=== PATIENT | female | born 1950 | race Caucasian/White ===

== ENCOUNTER → 2017-07-16 | Outpatient (CLI) | payer MEDICARE, OTHER ==
--- NOTE | 2017-07-16 09:05 | MR ---
EXAMINATION TYPE: MR lumbar spine wo con DATE OF EXAM: 07/16/2017 8:53 AM COMPARISON: NONE HISTORY: Lumbago Multiplanar, MultiSpin echo imaging of the lumbar spine was performed. L1-L2: Normal disc appearance without desiccation. No herniation, protrusion or disc bulging. No ca nal stenosis is present. Foramina are patent bilaterally. L2-L3: Mild disc desiccation is noted. Posterior disc bulging with mild effacement ventral thecal sac . No evidence for kenia disc herniation or central stenosis. Mild facet joint arthropathy without for aminal encroachment. L3-L4: Mild disc desiccation is noted. Posterior disc bulging with mild effacement ventral thecal sac . No evidence for kenia disc herniation or central stenosis. Mild facet joint arthropathy without for aminal encroachment. L4-L5: Moderate disc desiccation identified. Subligamentous posterior central disc herniation effaces the ventral thecal sac. There may be intermittent left lateral recess stenosis. No evidence for cent ral stenosis. Facet joint arthropathy without evidence for foraminal encroachment. Grade 1 anterolist hesis L4 and L5 measuring 3.8 mm. L5-S1: Severe disc desiccation noted. Posterior disc bulging with mild effacement ventral thecal sac. No evidence for kenia disc herniation or central stenosis. Mild facet joint arthropathy without fora eriberto encroachment. Lumbar segments are intact. No paraspinal masses are identified. Conus medullaris has a normal appe arance. IMPRESSION: 1. Multilevel degenerative disc disease as noted. 2. Subligamentous disc herniation at L4-5 with possible intermittent left lateral recess stenosis. Co rrelate clinically. See above.
== END ==
LOC: RADMRIMAIN 08:10
PROVIDERS: ATTEND Psychiatry & Neurology Pain Medicine
DX: M51.26 Other intervertebral disc displacement, lumbar region (principal); M51.36 Other intervertebral disc degeneration, lumbar region
CPT/HCPCS: 72148

== ENCOUNTER → 2018-12-08 | Outpatient (CLI) | payer MEDICARE, OTHER | END | disposition home or self-care (01) | LOC: LABPAT 10:30 | PROVIDERS: ATTEND Orthopaedic Surgery | DX: Z01.812 Encounter for preprocedural laboratory examination (principal) | CPT/HCPCS: 87070 ==

== ENCOUNTER 2019-01-19 05:38 | Inpatient (IN) | payer MEDICARE, OTHER ==
[2019-01-13 15:47] VITALS: BMI 39.2
--- NOTE | 2019-01-18 18:51 | HP ---
HISTORY AND PHYSICAL REASON FOR ADMISSION: Surgery scheduled for 01/19/2019 Rina Bañuelos is a 68-year-old patient seen with symptomatic right knee osteoarthritis. We discussed treatment options. She elected to proceed with right total knee arthroplasty. Consent was obtained. Medical clearance provided by Dr. Feliz Barrios. PAST MEDICAL HISTORY: Hypertension, hyperlipidemia, [id number] diabetes. PAST SURGICAL HISTORY: Left total knee arthroplasty, lung lobectomy. MEDICATIONS: Lisinopril/hydrochlorothiazide, Neurontin, pravastatin, Tenormin, aspirin, Flexeril, metformin. ALLERGIES: None. SOCIAL HISTORY: She denies tobacco use. PHYSICAL EXAMINATION: Evaluation of the right knee: Range of motion is negative 2 to 120 degrees. Tenderness along the medial joint line. Crepitus medial patellofemoral compartments with range of motion. Pain with patellofemoral compression. Ligaments are stable. Hip rotation without pain. Distal neurovascular exam is intact. RADIOGRAPHS: Right knee radiographs revealed severe osteoarthritic changes. IMPRESSION: 1. Right knee osteoarthritis. 2. Hypertension. 3. Hyperlipidemia. PLAN: Right total knee arthroplasty. Surgery is scheduled for 01/19/2019. MMODL / IJN: [id number] /
[~2019-01-19 05:38] MED LIST: TRANEXAMIC ACID 1,000 MG in SODIUM CHLORIDE 0.9% 100 ML IVPB ONE; ceFAZolin IN SWFI 2 GM/20 ML SYRINGE IVP ONE
[2019-01-19] MEDS ORDERED: LIDOCAINE 1% 20 ML VIAL (10MG/ML) FOR IV START INTRADERMA PRN (06:05)
[2019-01-19] MEDS: LACTATED RINGERS 1,000 ML IV SCH ×4 (06:35→19:51)
[2019-01-19 06:43] LABS: Glucose,Whole Blood 129 mg/dL (75-99)
[2019-01-19] MEDS: MELOXICAM 7.5 MG TAB PO ONE ×2 (06:55→10:35)
[2019-01-19] MEDS: ACETAMINOPHEN TAB 500 MG TAB PO ONE ×2 (06:55→10:35)
[2019-01-19] MEDS ORDERED: MIDAZOLAM (PF) 2 MG/2 ML VIAL IVP ONE (07:10)
[2019-01-19] MEDS: ONDANSETRON 4 MG/2 ML VIAL IVP ONE ×2 (07:22→10:35)
[2019-01-19] MEDS ORDERED: TRANEXAMIC ACID 1,000 MG/10 ML VIAL ONE (07:25)
[2019-01-19] MEDS ORDERED: SODIUM CHLORIDE 0.9% 100 ML BAG ONE (07:25)
[2019-01-19] MEDS ORDERED: PROPOFOL 10 MG/ML 20 ML VIAL IV ONE (07:25)
[2019-01-19] MEDS ORDERED: fentaNYL (PF) 50 MCG/ML 2 ML AMP ONE (07:25)
[2019-01-19] MEDS ORDERED: MIDAZOLAM 2 MG/2 ML VIAL ONE (07:25)
[2019-01-19] MEDS ORDERED: ROPIVACAINE 246.25 MG, EPINEPHrine 0.5 MG, KETOROLAC 30 MG, WATER FOR INJECTION,STERILE... MISCELLANE ONE ×4 (07:28)
[2019-01-19] MEDS ORDERED: ROPIVACAINE 1,100 MG, SODIUM CHLORIDE 0.9% 500 ML 330 ML MISCELLANE PRN ×2 (07:42)
--- NOTE | 2019-01-19 07:51 | P.ONQ ---
Anesthesiology Proc Note - PNB - Peripheral Nerve Block Performed Right Adductor Canal Infusion Time Out Performed: Yes Procedure Start Time: 06:57 Procedure Stop Time: 07:08 Indication: Acute Post-Operative Pain, Requested by physician Sedation Type: Sedate with meaningful contact maintained Preparation: Sterile Dressing Position: Supine Catheter: Indwelling Needle Types: On-Q Needle Size: 100mm (4") Needle Gauge: 21 Technique: Ultrasound (ropi .5% 25cc) Blood Aspirated: No Pain Paresthesia on Injection Noted: No Resistance on Injection: Normal Events: Uneventful and Well Tolerated
[2019-01-19] MEDS ORDERED: ceFAZolin 3,000 MG in SODIUM CHLORIDE 0.9% IRRIGATIO 3,000 ML IRRIGATION ONE (07:57)
[2019-01-19] MEDS ORDERED: LACTATED RINGERS 1,000 ML IV ONE (09:01)
[2019-01-19] MEDS ORDERED: ONDANSETRON 4 MG/2 ML VIAL IVP PRN (09:30)
[2019-01-19] MEDS ORDERED: traMADol 50 MG TAB PO PRN (09:30)
[2019-01-19] MEDS ORDERED: HYDROmorphone 0.5 MG/0.5 ML SYRINGE IVP PRN ×2 (09:30)
[2019-01-19] MEDS ORDERED: HYDROmorphone 1 MG/ML 1 ML SYRINGE IVP PRN (09:30)
[2019-01-19] MEDS ORDERED: HYDROcodone/APAP 5-325MG 1 EACH TAB PO PRN (09:30)
[2019-01-19] MEDS ORDERED: NALOXONE 0.4 MG/ML 1 ML VIAL IV PRN (09:30)
--- NOTE | 2019-01-19 09:30 | P.OP ---
Date of Procedure: 01/19/19 Preoperative Diagnosis: Right knee osteoarthritis Postoperative Diagnosis: Right knee osteoarthritis Procedure(s) Performed: Right total knee arthroplasty Implants: 1. Mai persona size 7 right cruciate-retaining cemented femur 2. Mai persona size E right cemented tibial baseplate 3. Mai persona 14 mm right medial congruent polyethylene tibial insert 4. Mai persona 35 mm all polyethylene cemented patella Anesthesia: regional (Adductor canal catheter), local, spinal Surgeon: Steve Islas Industrial Conveyor Belt Repairer #1: Carlo Whitley Estimated Blood Loss (ml): 50 Pathology: other (Bone) Condition: stable Disposition: PACU Indications for Procedure: 68-year-old patient seen with symptomatic right knee osteoarthritis. After having treatment options discussed, she elected to proceed with total knee arthroplasty. Operative Findings: See description of procedure Description of Procedure: Patient was taken to the operative suite after having an adductor canal catheter placed by the department of anesthesia for postoperative pain management. Patient underwent a spinal anesthetic by the department of anesthesia. Patient was given preoperative IV intake antibiotics and TXA. A well-padded tourniquet was placed about the right lower extremity. The lower extremity was then prepped and draped in the normal sterile orthopedic fashion. The extremity was elevated, a tourniquet was insufflated to 300. A standard anterior incision was made sharply through skin. Dissection was taken down through the subcutaneous soft tissues down to the extensor mechanism. A medial arthrotomy was performed, patella was everted and knee was flexed. There was advanced osteoarthritis noted. I introduced my distal intramedullary femoral drill. I then introduced the distal femoral cutting jig. Mehul GRAHAM secured the cutting jig with 2 pins. I held retractors in position while Mehul GRAHAM performed the distal femoral resection through the guide area we now removed her distal femoral cutting guide. We now placed our 4-in-1 femoral cutting block and positioned and it was secured with 2 pins by Mehul GRAHAM while I held the block in position. The distal femoral finishing was now completed. A proximal tibial cutting guide was positioned. I held the guide in the appropriate position with both hands well Mehul GRAHAM inserted stabilizing pins into the guide. Proximal tibial cut was made. We now placed a trial femoral component into position, along with an appropriate size tibial tray and insert. We now took the knee through range of motion and had full extension good flexion and good overall soft tissue balance noted. The patella was everted and stabilized with 2 towel clips held by Mehul GRAHAM while I performed a flush with patellar q uad tendon utilizing a fresh sawblade. We templated the patella, appropriate drill holes were made. An appropriate trial patella was positioned, knee was taken through full range of motion with the patella tracking very nicely. The trial patella was removed. Drill holes were made through the femoral component. All trial components were removed after marking off the appropriate rotation of the tibia. Retractors were now positioned along the proximal tibia. An appropriate keel punch was made with the appropriate size tibial guide by myself on Mehul GRAHAM assisted by holding retractors. At this point appropriate size implants were chosen and opened. The joint was irrigated copiously with pulse lavage mechanical irrigation. The posterior capsule was infiltrated with local analgesic. The wound was irrigated with pulse lavage mechanical irrigation. We mixed antibiotic methylmethacrylate. We placed the knee into flexion. We placed multiple retractors assisted by Mehul GRAHAM to expose the proximal tibia. Once the methyl methacrylate was ready, the tibial component was cemented into place removing any excess methylmethacrylate form by both myself and Mehul GRAHAM. The femoral component was cemented into place removing the removing any excess methylmethacrylate performed by both myself and Mehul GRAHAM. We then inserted the appropriate size polyethylene tibial insert. We made sure that it was locked into position. We took the knee into full extension, and then back in a flexion making sure we had removed any excess methylmethacrylate. The patellar component was then cemented down and secured with clamp. Excess methylmethacrylate removed. We kept the knee in full extension, patellar clamp in position until methylmethacrylate had hardened. Once it had hardened the patellar clamp was removed. The knee was taken through full range of motion. The patella tracked nicely. There was good soft tissue balancing. The tourniquet was now released. Additional hemostasis was achieved via electrocautery. A second gram of TXA was given. The wound again was irrigated with pulse lavage mechanical irrigation. The superficial soft tissues were infiltrated local analgesic. The extensor mechanism was repaired with Vicryl. We checked the repair with range of motion and it was stable. The subcutaneous soft tissues were repaired with Vicryl in layers. The skin was approximated with pernio/Dermabond. Sterile dressings were applied followed by loose web roll and Jc bandage. The patient was transferred to a bed, and taken to recovery in stable and satisfactory condition. Mehul GRAHAM assisted with this complex procedure.
[2019-01-19] MEDS: HYDROmorphone 0.5 MG/0.5 ML SYRINGE IVP PRN ×2 (10:09→10:16)
--- NOTE | 2019-01-19 10:27 | XR ---
EXAMINATION TYPE: XR knee limited RT DATE OF EXAM: 01/19/2019 COMPARISON: NONE TECHNIQUE: Two views submitted HISTORY: Post op FINDINGS: There is a prosthetic knee in near anatomic alignment. There is soft tissue edema and emphysema. IMPRESSION: 1. Postoperative change. Appears in near-anatomic alignment
[2019-01-19 10:36] LABS: Glucose,Whole Blood 117 mg/dL (75-99)
[2019-01-19 16:51] LABS: Glucose,Whole Blood 108 mg/dL (75-99)
[2019-01-19] MEDS: INSULIN ASPART (NovoLOG) 100 UNIT/ML VIAL SQ SCH ×2 (18:39→20:33)
[2019-01-19] MEDS: ceFAZolin IN SWFI 2 GM/20 ML SYRINGE IVP SCH (18:39)
[2019-01-19] MEDS: SENNOSIDES-DOCUSATE SODIUM 1 EACH TAB PO SCH (19:53)
[2019-01-19] MEDS: ENOXAPARIN 30 MG/0.3 ML SYRINGE SQ SCH (19:53)
[2019-01-19 20:27] LABS: Glucose,Whole Blood 118 mg/dL (75-99)
[2019-01-19] MEDS: HYDROcodone/APAP 7.5-325MG 1 EACH TAB PO PRN (22:14)
[2019-01-19] MEDS: CYCLOBENZAPRINE 10 MG TAB PO SCH (22:15)
[2019-01-19] MEDS: GABAPENTIN 400 MG CAP PO SCH (22:15)
--- NOTE | 2019-01-19 23:35 | CONS ---
CONSULTATION REASON FOR CONSULTATION: Advice regarding diabetes and other medical issues, requested by Dr. Islas. HISTORY OF PRESENT ILLNESS: This patient is a 68-year-old woman with a past medical history of diabetes, hypertension, hyperlipidemia, being followed by Dr. Feliz Barrios in the outpatient setting. She underwent right total knee arthroplasty. Patient tolerated the procedure well. The patient was admitted for further evaluation and treatment. Preoperatively the patient had some irregularities in the cardiac rhythm and the patient underwent extensive cardiovascular workup, including stress test and 2D echo by Dr. Freed, which was found to be normal, and the patient was cleared for surgery at that time. The EKG showed some PACs. There is no history of any fever, rigor or chills. No history of headache, loss of consciousness, seizures at this time. PAST MEDICAL HISTORY: 1. History of diabetes mellitus. 2. Hypertension. 3. Hyperlipidemia. 4. History of DJD. 5. History of adenoidectomy. 6. Tonsillectomy. 7. Anxiety. HOME MEDICATIONS: 1. [place] 7.5 one to two q.6 p.r.n. 2. Glucophage 500 mg at 1800 hours. 3. Pravastatin 80 mg at bedtime. 4. Zestoretic 20/12.5 one p.o. daily. 5. Neurontin 400 mg t.i.d. 6. Flexeril 10 mg at bedtime. 7. Tenormin 50 mg daily. 8. Aspirin 325 mg p.o. b.i.d. ALLERGIES: NONE. FAMILY HISTORY: History of cancer in the family. SOCIAL HISTORY: No history of smoking. No history of alcohol intake. REVIEW OF SYSTEMS: ENT: No diminished hearing. No diminished vision. CARDIOVASCULAR SYSTEM: As mentioned earlier. RESPIRATORY SYSTEM: No cough, hemoptysis. GI: No nausea, vomiting. : No dysuria or retention. NERVOUS SYSTEM: No numbness, weakness. ALLERGY/IMMUNOLOGY: No asthma, hayfever. MUSCULOSKELETAL: As mentioned earlier. HEMATOLOGY/ONCOLOGY: No history of anemia. ENDOCRINE: Diabetes. CONSTITUTIONAL: As mentioned earlier. DERMATOLOGY: Negative. RHEUMATOLOGY: Negative. PSYCHIATRY: As mentioned earlier. PHYSICAL EXAMINATION: Patient alert and oriented x3. Pulse is 76, blood pressure 164/76, respiration 16, temperature 97.8, pulse ox 96% on room air. HEENT: Conjunctivae normal. NECK: No jugular venous distention. CARDIOVASCULAR SYSTEM: S1, S2 muffled. RESPIRATORY SYSTEM: Breath sounds diminished at the bases. No rhonchi. No crackles. ABDOMEN: Soft, non-tender. No mass palpable. LEGS: Status post surgery. NERVOUS SYSTEM: Higher functions as mentioned earlier. Moves all 4 limbs. No focal motor or sensory deficit. LYMPHATICS: No lymph node palpable in neck, axillae or groin. SKIN: No ulcer, rash, bleeding. JOINTS: No active deforming arthropathy. LABS: Accu-Cheks 129, 117, 108, 118. ASSESSMENT: 1. Status post right total knee joint arthroplasty. 2. Diabetes mellitus, type 2. 3. Hypertension. 4. Hyperlipidemia. 5. Degenerative joint disease. 6. History of preoperative early PACs with a negative cardiac workup. 7. Adenoidectomy. 8. History of anxiety. RECOMMENDATIONS AND DISCUSSION: In this 68-year-old woman who presented with multiple medical issues, at this time we will monitor the patient closely, continue the current medications, continue with symptomatic treatment. Otherwise at this time I would recommend continuing the home medications. DVT prophylaxis. Incentive spirometry. We will follow the patient closely. Monitor Accu-Cheks before meals and at bedtime. Thank you, Dr. Islas, for letting us participate in the care of this patient. MMITALOL / IJN: [id number] /
[2019-01-20] MEDS: ceFAZolin IN SWFI 2 GM/20 ML SYRINGE IVP SCH (00:08)
[2019-01-20] MEDS: LACTATED RINGERS 1,000 ML IV SCH ×2 (03:41→22:28)
[2019-01-20 06:52] LABS: Glucose,Whole Blood 124 mg/dL (75-99)
[2019-01-20 08:21] LABS: Basophils % (A) 0 %; Eosinophils % (A) 1 %; HCT 38.1 % (34.0-46.0); Hypochromasia Slight; Lymphocytes % (A) 15 %; MCH 24.9 pg (25.0-35.0); MCHC 31.5 g/dL (31.0-37.0); MCV 79.2 fL (80.0-100.0); Mean Platelet Volume 7.5; Monocytes # (A) 0.5 k/uL (0-1.0); Monocytes % (A) 7 %; Neutrophils # (A) 5.1 k/uL (1.3-7.7); Neutrophils % (A) 76 %; Platelet Count 172 k/uL (150-450); RBC 4.81 m/uL (3.80-5.40); RDW 14.5 % (11.5-15.5); WBC 6.7 k/uL (3.8-10.6)
[2019-01-20] MEDS: INSULIN ASPART (NovoLOG) 100 UNIT/ML VIAL SQ SCH ×4 (08:32→20:35)
[2019-01-20] MEDS: LISINOPRIL-HCTZ 20-12.5 MG 1 EACH TAB PO SCH ×2 (08:37→08:38)
[2019-01-20] MEDS: ENOXAPARIN 30 MG/0.3 ML SYRINGE SQ SCH ×3 (08:37→20:35)
[2019-01-20] MEDS: HYDROcodone/APAP 7.5-325MG 1 EACH TAB PO PRN ×2 (08:37→16:19)
[2019-01-20] MEDS: GABAPENTIN 400 MG CAP PO SCH ×3 (08:37→21:35)
[2019-01-20] MEDS: MELOXICAM 7.5 MG TAB PO SCH (08:38)
[2019-01-20] MEDS: ATENOLOL 50 MG TAB PO SCH (08:39)
--- NOTE | 2019-01-20 11:05 | P.PN ---
Progress Note - Text 01/20 644am 68-year-old female status post total knee replacement. Patient has an On-Q pump for postop pain control but has not been working well, she had a pain score of 70 last night, she took [place] this morning to help with the pain control. Presently her VAS is 5. Plan to continue On-Q pump infusion along with oral pain medication
[2019-01-20 12:02] LABS: Glucose,Whole Blood 108 mg/dL (75-99)
--- NOTE | 2019-01-20 13:07 | P.PN ---
Subjective Progress Note Date: 01/20/19 Principal diagnosis: Status post right total knee arthroplasty Patient evaluated at bedside, she is having some increasing pain today. She notes more the anterior aspect. She has a relatively well with therapy. She denies any shortness of breath. Objective - Vital Signs Vital signs: Vital Signs Temp 98.0 F 01/20/19 07:00 Pulse 86 01/20/19 08:00 Resp 18 01/20/19 08:00 BP 165/82 01/20/19 07:00 Pulse Ox 95 01/20/19 07:00 Intake & Output 01/19/19 01/20/19 01/20/19 18:59 06:59 18:59 Intake Total 2337 744 8 Output Total 50 Balance 2287 744 8 Intake: IV 1617 24 8 Invasive Line 2 16 24 8 Intake, IV Titration 300 Amount Lactated Ringers 1,000 ml 300 @ 100 mls/hr IV .Q10H CHERISE Rx#:[id number] Oral 420 720 Output: Estimated Blood Loss 50 Other: Voiding Method Toilet Toilet # Voids 1 1 - Exam Right lower extremity: Incision is clean, dry, and intact. The exofin fusion tape is in good condition. There is minimal soft tissue swelling and ecchymosis surrounding the medial and lateral aspects of the incision. Calf is soft, no tenderness with palpation. Plantar flexion, dorsiflexion, EHL, FHL are intact. Sensory exam to light touch throughout the extremity is intact, dorsal pedis pulses 2+. - Labs CBC & Chem 7: 01/20/19 07:27 Labs: Abnormal Lab Results - Last 24 Hours (Table) 01/19/19 01/19/19 01/20/19 Range/Units 16:48 20:25 06:51 MCV (80.0-100.0) fL MCH (25.0-35.0) pg POC Glucose (mg/dL) 108 H 118 H 124 H (75-99) mg/dL 01/20/19 01/20/19 Range/Units 07:27 11:50 MCV 79.2 L (80.0-100.0) fL MCH 24.9 L (25.0-35.0) pg POC Glucose (mg/dL) 108 H (75-99) mg/dL Assessment and Plan Plan: Assessment: Postoperative day 1 status post right total knee arthroplasty Plan: Pain control, continue use of oral medication. Utilize IV pain medications needed GI and DVT prophylaxis, continue current medication Continue work physical therapy Icing and elevating instructions discussed Encourage incentive spirometer Medical recommendations Due to patient's pain level, we will keep 1 additional night. We'll change placement type to inpatient status Plan for discharge home tomorrow Time with Patient: Less than 30
[2019-01-20 17:09] LABS: Glucose,Whole Blood 100 mg/dL (75-99)
[2019-01-20] MEDS ORDERED: metFORMIN 500 MG TAB PO SCH (18:00)
[2019-01-20 20:21] LABS: Glucose,Whole Blood 136 mg/dL (75-99)
[2019-01-20] MEDS: CYCLOBENZAPRINE 10 MG TAB PO SCH (20:35)
[2019-01-20] MEDS: SENNOSIDES-DOCUSATE SODIUM 1 EACH TAB PO SCH (20:35)
[2019-01-20] MEDS ORDERED: CYCLOBENZAPRINE 10 MG TAB PO SCH (21:00)
[2019-01-20] MEDS ORDERED: PRAVASTATIN SODIUM 80 MG TAB PO SCH (21:00)
[2019-01-20 21:52] LABS: Hemoglobin A1C 6.3 % (4.0-6.0)
[2019-01-21] MEDS ORDERED: HYDROcodone/APAP 7.5-325MG 1 EACH TAB ONE (01:35)
[2019-01-21] MEDS: LACTATED RINGERS 1,000 ML IV SCH ×2 (07:05→10:29)
[2019-01-21 07:11] LABS: Glucose,Whole Blood 120 mg/dL (75-99)
[2019-01-21] MEDS: HYDROcodone/APAP 7.5-325MG 1 EACH TAB PO PRN (07:11)
[2019-01-21] MEDS: INSULIN ASPART (NovoLOG) 100 UNIT/ML VIAL SQ SCH ×2 (07:12→11:58)
[2019-01-21 07:21] VITALS: BP 133/82; PULSE 85; RESP 14; TEMP 98.2
[2019-01-21] MEDS: GABAPENTIN 400 MG CAP PO SCH (07:59)
[2019-01-21] MEDS: ATENOLOL 50 MG TAB PO SCH (07:59)
[2019-01-21] MEDS: ENOXAPARIN 30 MG/0.3 ML SYRINGE SQ SCH (07:59)
[2019-01-21] MEDS: MELOXICAM 7.5 MG TAB PO SCH (07:59)
--- NOTE | 2019-01-21 09:26 | P.PN ---
Subjective Progress Note Date: 01/21/19 Principal diagnosis: Status post right total knee arthroplasty Patient evaluated at bedside. Patient's pain is significantly improved today. She is ambulating a lot better today. She denies any shortness of breath. Objective - Vital Signs Vital signs: Vital Signs Temp 98.2 F 01/21/19 07:08 Pulse 85 01/21/19 07:08 Resp 14 01/21/19 07:08 BP 133/82 01/21/19 07:08 Pulse Ox 96 01/21/19 07:08 Intake & Output 01/20/19 01/21/19 01/21/19 18:59 06:59 18:59 Intake Total 24 250 Balance 24 250 Intake: IV 24 Invasive Line 2 24 Oral 250 Other: Voiding Method Toilet Toilet Toilet # Voids 3 2 - Exam Right lower extremity: Incision is clean, dry, and intact. The exofin fusion tape is in good condition. There is minimal soft tissue swelling and ecchymosis surrounding the medial and lateral aspects of the incision. Calf is soft, no tenderness with palpation. Plantar flexion, dorsiflexion, EHL, FHL are intact. Sensory exam to light touch throughout the extremity is intact, dorsal pedis pulses 2+. - Labs CBC & Chem 7: 01/20/19 07:27 Labs: Abnormal Lab Results - Last 24 Hours (Table) 01/20/19 01/20/19 01/20/19 Range/Units 07:27 11:50 16:57 POC Glucose (mg/dL) 108 H 100 H (75-99) mg/dL Hemoglobin A1c 6.3 H (4.0-6.0) % 01/20/19 01/21/19 Range/Units 20:09 06:59 POC Glucose (mg/dL) 136 H 120 H (75-99) mg/dL Hemoglobin A1c (4.0-6.0) % Assessment and Plan Plan: Assessment: Postoperative day #2 status post right total knee arthroplasty Plan: Pain control, will resume her cardiac prescribed oral pain medication GI and DVT prophylaxis, aspirin 325 mg twice a day Continue work physical therapy Icing and elevating instructions discussed Encourage incentive spirometer Medical recommendations Plan for discharge home today Time with Patient: Less than 30
--- NOTE | 2019-01-21 09:27 | P.DS ---
Providers Date of admission: 01/19/2019 Expected date of discharge: 01/21/19 Attending physician: Steve Islas Consults: 01/19/19 09:30 Consult Physician Routine Consulting Provider: Uziel Bello Consult Reason/Comments: Medical management Do you want consulting provider notified?: Yes Primary care physician: Feliz Barrios Hospital Course: Date of admission: 01/19/2019 Date of discharge: 01/21/2019 Admission diagnosis: Status post right total knee arthroplasty Discharge diagnosis: Same Attending physician: Dr. Islas Surgical procedures: Right total knee arthroplasty Brief history: Patient is a 68-year-old female with a history of progressive primary right knee osteoarthritis. At this point patient has failed conservative treatment measures and has opted to proceed with a elective right total knee arthroplasty. Hospital course: Details of patient's surgery can be found in operative report. Patient tolerated the procedure well and was subsequently transported to orthopedic floor. Patient's orthopeidc and medical care was provided daily. Patient had daily laboratory tests performed for evaluation of overall blood counts. Patient had daily physical therapy to include strengthening range of motion as well as education with walker ambulation. Patient had daily CPM usage as part of their physical therapy program. Patient was treated with Lovenox for their postoperative DVT prophylaxis during their inpatient stay. Patient was noted to have a relatively uneventful postoperative course. Patient reported satisfactory pain control with oral pain medications by postoperative day 0. Patient showed satisfactory progress with physical therapy. Patient moved steadily through the program and had no difficulty meeting the goals by postoperative day 2. Given patient's otherwise satisfactory course and having met physical therapy goals, plan is to discharge patient home on postoperative day 2. Discharge condition/disposition: Patient will be discharged home in stable condition. Discharge medications: Instructions are given on resumption of patient's normal daily medications per primary care recommendation, in addition patient will be prescribed no new medications. Discharge instructions: 1. Wound care and infection precautions, keep incision dry and covered while showering, no lotions, creams, moisturizers. No soaking, tubs, pools, hottubs. Do not scrub over the incision. 2. Weight-bear as tolerated with walker / cane until follow-up. 3. Ice and elevate when necessary. Do not exceed 20 minutes per hour with ice pack. 4. Utilize compression sleeve until seen at first follow up appointment. 5. Visiting nursing care. 6. Home physical therapy including home CPM. 7. Pain meds and anticoagulants per prescription. 8. Pain medication has potential to cause constipation. Increase oral fluid and fiber intake. Contact primary care provider if you have not had a bowel movement within 48 hours after discharge 9. No anti-inflammatory medication until discussed at first post operative visit, this including Motrin, Aleve, Mobic, Diclofenac. 10. Follow up in office at 2 weeks postop with Mehul Whitley PA-C 11. Follow up with your primary care doctor 7-10 days after discharge. 12. Contact [facility] with any questions, . Procedures: Right total knee arthroplasty Patient Condition at Discharge: Good Plan - Discharge Summary Discharge Rx Participant: Yes New Discharge Prescriptions: No Action Lisinopril-Hctz 20-12.5 mg [Zestoretic 20-12.5] 1 tab PO DAILY Atenolol [Tenormin] 50 mg PO DAILY Pravastatin Sodium 80 mg PO HS Gabapentin [Neurontin] 400 mg PO TID Cyclobenzaprine [Flexeril] 10 mg PO HS Aspirin 325 mg PO BID #60 tab HYDROcodone/APAP 7.5-325MG [[place] 7.5] 1 - 2 each PO Q6HR PRN #60 tab PRN Reason: Pain metFORMIN HCL [Glucophage] 500 mg PO 1800 Discharge Medication List Atenolol [Tenormin] 50 mg PO DAILY 05/24/16 [History] Cyclobenzaprine [Flexeril] 10 mg PO HS 05/24/16 [History] Gabapentin [Neurontin] 400 mg PO TID 05/24/16 [History] Lisinopril-Hctz 20-12.5 mg [Zestoretic 20-12.5] 1 tab PO DAILY 05/24/16 [History] Pravastatin Sodium 80 mg PO HS 05/24/16 [History] Aspirin 325 mg PO BID #60 tab 05/30/16 [Rx] HYDROcodone/APAP 7.5-325MG [[place] 7.5] 1 - 2 each PO Q6HR PRN #60 tab 05/30/16 [Rx] metFORMIN HCL [Glucophage] 500 mg PO 1800 01/13/19 [History] Follow up Appointment(s)/Referral(s): [facility], [NON-STAFF] - Feliz Barrios MD [Primary Care Provider] - 1 Week Carlo Whitley PAC [PHYSICIAN ARC CUTTER] - 02/04/19 2:50 pm Activity/Diet/Wound Care/Special Instructions: Orthopedic Discharge Instructions: 1. Wound care and infection precautions, keep incision dry and covered while showering, no lotions, creams, moisturizers. No soaking, pools, hot tubs. Do not scrub over incision. 2. Weight-bear as tolerated with walker / cane until follow-up. 3. Ice and elevate when necessary. Do not exceed 20 minutes per hour with ice pack. 4. Utilize compression sleeve until seen at first follow up appointment. 5. Pain meds and anticoagulants per prescription. 6. Pain medication has potential to cause constipation. Increase oral fluid and fiber intake. Contact primary care provider if you have not had a bowel movement within 48 hours after discharge. 7. No anti-inflammatory medication until discussed at first post operative visit, this including Motrin, Aleve, Mobic, Diclofenac. 8. Follow up in office at 2 weeks postop with Mehul Whitley PA-C 9. Follow up with your primary care doctor 7-10 days after discharge. 10. Contact [facility] with any questions, [phone]. 11. *Please call [employer] once home to arrange delivery of continuous passive motion (CPM) machine [phone] Anticoagulation instructions: Patient instructed to resume her aspirin 325 mg twice a day Discharge Disposition: HOME WITH HOME HEALTH SERVICES
--- NOTE | 2019-01-21 21:53 | PN ---
PROGRESS NOTE DATE OF SERVICE: 01/21/19 This 68-year-old woman was admitted after right total knee arthroplasty. She is improving significantly. No chest pain. No palpitations. No fever. Blood sugar is fairly well controlled. On exam, alert and oriented x3. Pulse is 85, blood pressure 133/82, respiratory rate 14, temperature 98.2, pulse ox 96% on room air. HEENT: Conjunctivae normal. NECK: No jugular venous distention. CARDIOVASCULAR SYSTEM: S1, S2 muffled. RESPIRATORY SYSTEM: Breath sounds diminished at the bases. No rhonchi. No crackles. ABDOMEN: Soft, non-tender. LEGS: Status post surgery. NERVOUS SYSTEM: No focal deficit. LABS: Hemoglobin A1c 6.3. Accu-Cheks 108, 100, 136, 120. ASSESSMENT: 1. Status post right total knee arthroplasty. 2. Diabetes mellitus, type 2. 3. Hypertension. 4. Hyperlipidemia. 5. History of degenerative joint disease. 6. History of preoperative early PACs with a negative cardiac workup. 7. Adenoidectomy. 8. History of anxiety. RECOMMENDATIONS AND DISCUSSION: I recommend to continue current medications, continue with the monitoring, symptomatic treatment. We will recommend resuming the home medications. Incentive spirometry. Follow up closely with a primary physician in the outpatient setting. Further recommendations to follow. MMODL / IJN: [id number] / RINA
--- NOTE | 2019-01-21 21:59 | PN ---
PROGRESS NOTE DATE OF SERVICE: 01/20/2019 This 68-year-old woman who was admitted after right total knee arthroplasty is improving significantly. No chest pain. No palpitations. No fever. On exam, alert and oriented x3. Pulse is 86, blood pressure 159/69, respiration 20, temperature 97.3, pulse ox 98% on room air. HEENT: Conjunctivae normal. NECK: No jugular venous distention. CARDIOVASCULAR SYSTEM: S1, S2 muffled. RESPIRATORY SYSTEM: Breath sounds diminished at the bases. No rhonchi. No crackles. ABDOMEN: Soft. LEGS: Status post surgery. NERVOUS SYSTEM: No focal deficit. Labs at this time show WBC 6.3, hemoglobin 12. Accu-Cheks are noted. ASSESSMENT: 1. Status post right total knee arthroplasty. 2. Diabetes mellitus, type 2. 3. Hypertension. 4. Hyperlipidemia. 5. Degenerative joint disease. 6. History of preoperative early PACs with negative cardiac workup. 7. Adenoidectomy. 8. History of anxiety. RECOMMENDATIONS AND DISCUSSION: I recommend to continue current medications, continue with the monitoring, symptomatic treatment. I would recommend continuing DVT prophylaxis. The rest of medication as mentioned earlier. The patient's current cardiac regimen is the regular. Further recommendations to follow. MMODL / IJN: [id number] /
== END 2019-01-21 13:16 | disposition home health service (06) | DRG 470 ==
LOC: OR 05:38 → 4SSUR 09:43 → OR 01-20 12:58 → 4SSUR 01-20 12:58
PROVIDERS: ADMIT Orthopaedic Surgery; ATTEND Orthopaedic Surgery
PROC: 0SRC0J9 Replacement of Right Knee Joint with Synthetic Substitute, Cemented, Open Approach (ICD-10-PCS; principal; 2019-01-19 07:30)
DX: M17.11 Unilateral primary osteoarthritis, right knee (principal); E11.40 Type 2 diabetes mellitus with diabetic neuropathy, unspecified; I10 Essential (primary) hypertension; E78.2 Mixed hyperlipidemia; E78.00 Pure hypercholesterolemia, unspecified; M47.9 Spondylosis, unspecified; Z79.84 Long term (current) use of oral hypoglycemic drugs; Z79.82 Long term (current) use of aspirin; Z79.899 Other long term (current) drug therapy; Z85.118 Personal history of other malignant neoplasm of bronchus and lung; Z90.2 Acquired absence of lung [part of]; Z96.652 Presence of left artificial knee joint; Z86.59 Personal history of other mental and behavioral disorders; Z80.0 Family history of malignant neoplasm of digestive organs; Z83.3 Family history of diabetes mellitus; Z81.8 Family history of other mental and behavioral disorders
CPT/HCPCS: 83036; 85025; 88300

== ENCOUNTER 2020-11-08 11:25 | Emergency (ER) | payer MEDICARE, OTHER ==
[2020-11-08] MEDS ORDERED: ALBUTEROL HFA INHALER INHALATION STA (11:45)
--- NOTE | 2020-11-08 11:49 | ED ---
General Adult HPI - General Chief complaint: Shortness of Breath Stated complaint: Covid+/sob/nausea Time Seen by Provider: 11/08/20 11:32 Source: patient, RN notes reviewed Mode of arrival: wheelchair Limitations: no limitations - History of Present Illness Initial comments: 70-year-old female presents emergency Department with chief complaint of short ness of breath. Patient states symptoms started on Saturday states that she was diagnosed with: Admitted on [facility]. Patient was discharged advised take some [id number] vitamins but states that she feels worse. She has more exertional symptoms. Patient denies any current went to chest pain headache dizziness fever leg pain may swelling she's had slight nausea no vomiting states she's not injuring much at this time. Patient denies any known drug ALLERGIES. Patient denies any other complaints. - Related Data Home Medications Medication Instructions Recorded Confirmed Cyclobenzaprine [Flexeril] 10 mg PO HS 05/24/16 11/08/20 Gabapentin [Neurontin] 400 mg PO QID 05/24/16 11/08/20 Lisinopril-Hctz 20-12.5 mg 1 tab PO DAILY 05/24/16 11/08/20 [Zestoretic 20-12.5] Pravastatin Sodium 80 mg PO DAILY 05/24/16 11/08/20 atenoloL [Tenormin] 50 mg PO DAILY 05/24/16 11/08/20 HYDROcodone/APAP 7.5-325MG [[place] 1 tab PO TID PRN 11/08/20 11/08/20 7.5] metFORMIN HCL ER [Glucophage Xr] 500 mg PO DAILY 11/08/20 11/08/20 Previous Rx's Medication Instructions Recorded Dexamethasone [Decadron] 6 mg PO DAILY #4 tablet 11/08/20 Allergies Allergy/AdvReac Type Severity Reaction Status Date / Time No Known Allergies Allergy Verified 11/08/20 12:51 Review of Systems ROS Statement: Those systems with pertinent positive or pertinent negative responses have been documented in the HPI. ROS Other: All systems not noted in ROS Statement are negative. Past Medical History Past Medical History: Cancer, Diabetes Mellitus, Hyperlipidemia, Hypertension, Musculoskeletal Disorder, Osteoarthritis (OA) Additional Past Medical History / Comment(s): hx. R lung cancer 2009, DDD, hiatal hernia, back pain, DIVERTICULITIS , History of Any Multi-Drug Resistant Organisms: None Reported Past Surgical History: Adenoidectomy, Tonsillectomy, Tubal Ligation Additional Past Surgical History / Comment(s): thoracotomy/lobectomy right lung, D & C, colonoscopy, BILATERAL CATARACTS WITH IMPLANTS Past Anesthesia/Blood Transfusion Reactions: Previous Problems w/ Anesthesia Additional Past Anesthesia/Blood Transfusion Reaction / Comment(s): aspirated during D & C years ago, no problems w/thoracotomy Past Psychological History: Anxiety Smoking Status: Never smoker Past Alcohol Use History: None Reported Past Drug Use History: None Reported - Past Family History Brother(s) Family Medical History: Cancer Mother Family Medical History: Cancer Sister(s) Family Medical History: Cancer General Exam Limitations: no limitations General appearance: alert, in no apparent distress Head exam: Present: atraumatic, normocephalic, normal inspection Eye exam: Present: normal appearance, PERRL, EOMI. Absent: scleral icterus, conjunctival injection, periorbital swelling ENT exam: Present: normal exam, mucous membranes moist Neck exam: Present: normal inspection, full ROM. Absent: tenderness, meningismus, lymphadenopathy Respiratory exam: Absent: respiratory distress, wheezes, rales, rhonchi, stridor Cardiovascular Exam: Present: regular rate, normal rhythm, normal heart sounds. Absent: systolic murmur, diastolic murmur, rubs, gallop, clicks GI/Abdominal exam: Present: soft, normal bowel sounds. Absent: distended, tenderness, guarding, rebound, rigid Back exam: Absent: CVA tenderness (R), CVA tenderness (L) Neurological exam: Present: alert, oriented X3, CN II-XII intact Skin exam: Present: warm, dry, intact, normal color. Absent: rash Course Vital Signs 11/08/20 11/08/20 11/08/20 11:27 12:57 13:43 Temperature 99.2 F Pulse Rate 70 75 67 Respiratory 18 22 20 Rate Blood Pressure 120/62 133/63 120/86 O2 Sat by Pulse 97 95 95 Oximetry EKG Findings - EKG Comments: EKG Findings:: EKG performed at 11:43 normal sinus rhythm rate of 67 IN 156 QRS 80 QT/QTc 420/443 Medical Decision Making - Medical Decision Making x-rays just show bilateral infiltrates. Patient vitals are stable vitals reviewed no significant changes and mild inflammatory markers. Patient's will be given monoclonal antibodies patient will be discharged after with close follow-up return parameters were discussed. - Lab Data Result diagrams: 11/08/20 12:10 11/08/20 12:10 Lab Results 11/08/20 11/08/20 11/08/20 Range/Units 12:10 12:10 12:10 WBC 4.3 (3.8-10.6) k/uL RBC 5.12 (3.80-5.40) m/uL Hgb 13.1 (11.4-16.0) gm/dL Hct 37.5 (34.0-46.0) % MCV 73.3 L (80.0-100.0) fL MCH 25.5 (25.0-35.0) pg MCHC 34.8 (31.0-37.0) g/dL RDW 13.8 (11.5-15.5) % Plt Count 137 L (150-450) k/uL MPV 8.2 Neutrophils % 78 % Lymphocytes % 14 % Monocytes % 6 % Eosinophils % 1 % Basophils % 1 % Neutrophils # 3.4 (1.3-7.7) k/uL Lymphocytes # 0.6 L (1.0-4.8) k/uL Monocytes # 0.3 (0-1.0) k/uL Eosinophils # 0.0 (0-0.7) k/uL Basophils # 0.0 (0-0.2) k/uL Microcytosis Slight PT 9.9 (9.0-12.0) sec INR 0.9 (<1.2) APTT 20.0 L (22.0-30.0) sec D-Dimer 0.86 H (<0.60) mg/L FEU Sodium 128 L (137-145) mmol/L Potassium 3.2 L (3.5-5.1) mmol/L Chloride 89 L (98-107) mmol/L Carbon Dioxide 30 (22-30) mmol/L Anion Gap 9 mmol/L BUN 12 (7-17) mg/dL Creatinine 0.66 (0.52-1.04) mg/dL Est GFR (CKD-EPI)AfAm >90 (>60 ml/min/1.73 sqM) Est GFR (CKD-EPI)NonAf 90 (>60 ml/min/1.73 sqM) Glucose 126 H (74-99) mg/dL Plasma Lactic Acid David (0.7-2.0) mmol/L Calcium 8.1 L (8.4-10.2) mg/dL Magnesium 2.1 (1.6-2.3) mg/dL Total Bilirubin 0.8 (0.2-1.3) mg/dL AST 46 H (14-36) U/L ALT 25 (4-34) U/L Alkaline Phosphatase 87 (38-126) U/L Lactate Dehydrogenase 960 H (313-618) U/L C-Reactive Protein 55.2 H (<10.0) mg/L Total Protein 6.3 (6.3-8.2) g/dL Albumin 3.6 (3.5-5.0) g/dL 11/08/20 Range/Units 12:10 WBC (3.8-10.6) k/uL RBC (3.80-5.40) m/uL Hgb (11.4-16.0) gm/dL Hct (34.0-46.0) % MCV (80.0-100.0) fL MCH (25.0-35.0) pg MCHC (31.0-37.0) g/dL RDW (11.5-15.5) % Plt Count (150-450) k/uL MPV Neutrophils % % Lymphocytes % % Monocytes % % Eosinophils % % Basophils % % Neutrophils # (1.3-7.7) k/uL Lymphocytes # (1.0-4.8) k/uL Monocytes # (0-1.0) k/uL Eosinophils # (0-0.7) k/uL Basophils # (0-0.2) k/uL Microcytosis PT (9.0-12.0) sec INR (<1.2) APTT (22.0-30.0) sec D-Dimer (<0.60) mg/L FEU Sodium (137-145) mmol/L Potassium (3.5-5.1) mmol/L Chloride (98-107) mmol/L Carbon Dioxide (22-30) mmol/L Anion Gap mmol/L BUN (7-17) mg/dL Creatinine (0.52-1.04) mg/dL Est GFR (CKD-EPI)AfAm (>60 ml/min/1.73 sqM) Est GFR (CKD-EPI)NonAf (>60 ml/min/1.73 sqM) Glucose (74-99) mg/dL Plasma Lactic Acid David 1.2 (0.7-2.0) mmol/L Calcium (8.4-10.2) mg/dL Magnesium (1.6-2.3) mg/dL Total Bilirubin (0.2-1.3) mg/dL AST (14-36) U/L ALT (4-34) U/L Alkaline Phosphatase (38-126) U/L Lactate Dehydrogenase (313-618) U/L C-Reactive Protein (<10.0) mg/L Total Protein (6.3-8.2) g/dL Albumin (3.5-5.0) g/dL Disposition Clinical Impression: COVID-19 Disposition: HOME SELF-CARE Condition: Stable Instructions (If sedation given, give patient instructions): Coronavirus Disease 2019 (COVID-19) Additional Instructions: Please return to the Emergency Department if symptoms worsen or any other concerns. Prescriptions: Dexamethasone [Decadron] 6 mg PO DAILY #4 tablet Is patient prescribed a controlled substance at d/c from ED?: No Referrals: Feliz Barrios MD [Primary Care Provider] - 1-2 days Time of Disposition: 15:44
[2020-11-08 12:20] LABS: Basophils % (A) 1 %; Eosinophils % (A) 1 %; HCT 37.5 % (34.0-46.0); HGB 13.1 gm/dL (11.4-16.0); Lymphocytes # (A) 0.6 k/uL (1.0-4.8); Lymphocytes % (A) 14 %; MCH 25.5 pg (25.0-35.0); MCHC 34.8 g/dL (31.0-37.0); MCV 73.3 fL (80.0-100.0); Mean Platelet Volume 8.2; Microcytosis Slight; Monocytes # (A) 0.3 k/uL (0-1.0); Monocytes % (A) 6 %; Neutrophils # (A) 3.4 k/uL (1.3-7.7); Neutrophils % (A) 78 %; Platelet Count 137 k/uL (150-450); RBC 5.12 m/uL (3.80-5.40); RDW 13.8 % (11.5-15.5); WBC 4.3 k/uL (3.8-10.6)
--- NOTE | 2020-11-08 12:32 | XR ---
EXAMINATION TYPE: XR chest 2V DATE OF EXAM: 11/08/2020 COMPARISON: NONE HISTORY: Shortness of breath TECHNIQUE: Frontal and lateral views of the chest are obtained. FINDINGS: Patchy peripheral density is noted within the lungs. There is no pneumothorax or pleural e ffusion evident. Cardiac mediastinal silhouette is within normal limits. Aorta is dense. Patient is r otated. Bones show normal mineralization. Thoracic spondylosis is present. IMPRESSION: Correlate for pneumonia, follow-up recommended.
[2020-11-08 12:36] LABS: ALT 25 U/L (4-34); AST 46 U/L (14-36); African American GFR (CKD) >90 (>60 ml/min/1.73 sqM); Albumin 3.6 g/dL (3.5-5.0); Alkaline Phosphatase 87 U/L (38-126); Anion Gap 9 mmol/L; Blood Urea Nitrogen 12 mg/dL (7-17); C Reactive Protein 55.2 mg/L (<10.0); Calcium 8.1 mg/dL (8.4-10.2); Carbon Dioxide 30 mmol/L (22-30); Chloride 89 mmol/L (98-107); Glucose 126 mg/dL (74-99); LDH 960 U/L (313-618); Magnesium 2.1 mg/dL (1.6-2.3); Non-African American GFR(CKD) 90 (>60 ml/min/1.73 sqM); Potassium 3.2 mmol/L (3.5-5.1); Sodium 128 mmol/L (137-145); Total Bilirubin 0.8 mg/dL (0.2-1.3); Total Protein 6.3 g/dL (6.3-8.2)
[2020-11-08 12:41] LABS: INR 0.9 (<1.2); Prothrombin Time 9.9 sec (9.0-12.0)
[2020-11-08 12:56] LABS: D-Dimer 0.86 mg/L FEU (<0.60)
[2020-11-08] MEDS ORDERED: DEXAMETHASONE SOD PHOSPHATE 10 MG/ML 1 ML VIAL IV STA (13:21)
[2020-11-08] MEDS ORDERED: POTASSIUM CHLORIDE ER 20 MEQ TAB.ER PO STA (13:22)
[2020-11-08 16:29] VITALS: RESP 18
[2020-11-08] MEDS ORDERED: BAMLANIVIMAB 700 MG in SODIUM CHLORIDE 0.9% 50 ML IVPB ONE (16:30)
[2020-11-08 18:15] VITALS: BP 136/73; PULSE 82; TEMP 98.7
== END 2020-11-08 18:13 | disposition home or self-care (01) ==
LOC: EC 11:25
DX: U07.1 COVID-19 (principal); E11.9 Type 2 diabetes mellitus without complications; E78.5 Hyperlipidemia, unspecified; I10 Essential (primary) hypertension; M19.90 Unspecified osteoarthritis, unspecified site; Z90.09 Acquired absence of other part of head and neck; Z98.51 Tubal ligation status; Z85.118 Personal history of other malignant neoplasm of bronchus and lung; Z79.84 Long term (current) use of oral hypoglycemic drugs
CPT/HCPCS: 36415; 94640; 93005; 85379; 80053; 83605; 83615; 83735; 85025; 85610; 85730; 86140; 84145; 87635; 71046; 99284; 96374; 96361; J1100; Q0239

== ENCOUNTER → 2022-03-22 | Outpatient (CLI) | payer MEDICARE, OTHER ==
[2022-03-22 12:54] VITALS: BP 161/83; PULSE 84; RESP 18; TEMP 98.9
--- NOTE | 2022-03-22 13:39 | P.GSHP ---
History of Present Illness H&P Date: 03/22/22 Chief Complaint: Invasive mucinous carcinoma left breast 6 o'clock position Rina is a 71-year-old white female status [place] ultrasound[place] [address]. This was for a 6:00 central lesion which was 1.5 cm in size. 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 She is seen in consultation for Dr. Barrios. [place] [address]. This revealed an area of concern in the left breast for which an ultrasound was performed this led to an ultrasound-guided core biopsy. The patient herself does not feel any lumps masses or nodules of concern in either breast. She is not complaining of any nipple discharge or skin changes. She's not had any recent trauma or infection in the breast. She's never had any breast biopsies or surgery on the breast. She herself has had lung cancer in 2007 treated with surgery no chemo or radiation Caffeine:none nicotine: none hormones: none BCP: 8 years stopped at about age 38 chocolate: weekly Family History: maternal grandmother: breast cancer mother: pancreatic cancer sister: breast cancer, also lung and throat cancer sister: lung cancer (smoker) 2 brothers: lung cancer (smokers) patient had lung cancer 1/3 of lung removed; 2007; no evidence of cancer now; no chemo or radiation Hormonal history: Menarche: 16 M1, breast fed: no, age at first :21 menopause: 40 BCP: 8 years hormones: none Surgical history: Lung resection Tubal ligation bilateral knee replacement Medical history: HTN high cholesterol boarderline diabetic Social History: Attending: Negative Alcohol: none drugs: none - Constitutional Constitutional: Denies chills, Denies fever - EENT Eyes: denies blurred vision, denies pain Ears: deny: decreased hearing, tinnitus Ears, nose, mouth and throat: Denies headache, Denies sore throat - Breasts Breasts: bilateral: as per HPI - Cardiovascular Cardiovascular: Reports shortness of breath - Respiratory Respiratory: Reports as per HPI - Gastrointestinal Gastrointestinal: Denies abdominal pain, Denies diarrhea, Denies nausea, Denies vomiting - Genitourinary (Female) Genitourinary: Denies dysuria, Denies hematuria - Menstruation Menstruation: Reports postmenopausal - Musculoskeletal Musculoskeletal: Denies myalgias - Integumentary Integumentary: Denies pruritus, Denies rash - Neurological Neurological: Denies numbness, Denies weakness - Psychiatric Psychiatric: Denies anxiety, Denies depression - Endocrine Endocrine: Denies fatigue, Denies weight change - Hematologic/Lymphatic Comment: baby aspirin daily - Allergic/Immunologic Allergic/Immunologic: Reports as per HPI Past Medical History Past Medical History: Cancer, Diabetes Mellitus, Hyperlipidemia, Hypertension, Musculoskeletal Disorder, Osteoarthritis (OA) Additional Past Medical History / Comment(s): hx. R lung cancer 2009, DDD, hiatal hernia, back pain, DIVERTICULITIS , History of Any Multi-Drug Resistant Organisms: None Reported Past Surgical History: Adenoidectomy, Tonsillectomy, Tubal Ligation Additional Past Surgical History / Comment(s): thoracotomy/lobectomy right lung, D & C, colonoscopy, BILATERAL CATARACTS WITH IMPLANTS Past Anesthesia/Blood Transfusion Reactions: Previous Problems w/ Anesthesia Additional Past Anesthesia/Blood Transfusion Reaction / Comment(s): aspirated during D & C years ago, no problems w/thoracotomy Past Psychological History: Anxiety Additional Psychological History / Comment(s): Pt is independent. She has a cane. She drives. Smoking Status: Never smoker Past Alcohol Use History: None Reported Past Drug Use History: None Reported - Past Family History Brother(s) Family Medical History: Cancer Mother Family Medical History: Cancer Sister(s) Family Medical History: Cancer Medications and Allergies Home Medications Medication Instructions Recorded Confirmed Type Cyclobenzaprine [Flexeril] 10 mg PO HS 05/24/16 03/22/22 History Gabapentin [Neurontin] 400 mg PO QID 05/24/16 03/22/22 History Lisinopril-Hctz 20-12.5 mg 1 tab PO DAILY 05/24/16 03/22/22 History [Zestoretic 20-12.5] Pravastatin Sodium 80 mg PO DAILY 05/24/16 03/22/22 History atenoloL [Tenormin] 50 mg PO DAILY 05/24/16 03/22/22 History metFORMIN HCL ER [Glucophage Xr] 500 mg PO DAILY 11/08/20 03/22/22 History Aspirin 81 mg PO DAILY 03/22/22 03/22/22 History Cholecalciferol [Vitamin D3 (25 25 mcg PO DAILY 03/22/22 03/22/22 History Mcg = 1000 Iu)] Allergies Allergy/AdvReac Type Severity Reaction Status Date / Time No Known Allergies Allergy Verified 11/08/20 12:51 Surgical - Exam Vital Signs Temp Pulse Resp BP Pulse Ox 98.9 F 84 18 161/83 96 03/22/22 12:52 03/22/22 12:52 03/22/22 12:52 03/22/22 12:52 03/22/22 12:52 BMI: 40.6 - General no distress - Eyes normal ocular movement - ENT no hearing loss - Neck trachea midline - Respiratory normal respiratory effort, clear to auscultation - Cardiovascular Rhythm: regular Heart Sounds: normal: S1, S2 - Abdomen Abdomen: soft, non tender, no guarding, no rigid, no rebound - Integumentary normal turgor - Neurologic no disoriented, no combative - Musculoskeletal normal gait, normal posture - Psychiatric oriented to time, oriented to person, oriented to place, speech is normal, memory intact Breast Exam: BRA: 42C inspection: Bilateral grade 3 ptosis Palpation: Right breast: Multiple positional exam fibrocystic changes no dominant masses or nodules of concern Right axilla: No adenopathy of concern Left breast: Multi-positional exam fibrocystic changes no dominant masses or nodules of concern particular attention to the 6:00 area does not reveal that the tumor which was biopsied Left axilla: No adenopathy of concern Results Mammogram reviewed in detail with Dr. Zaragoza Assessment and Plan Assessment: Impression: Left breast 1.5 cm invasive mucinous carcinoma this is ER/RI positive HER-2/gricel negative in G1 Hypertension High cholesterol It appears that the clip related to the biopsy has migrated from the lesion and therefore needle localization should be by ultrasound guidance Plan: Presentation of case at tumor board Is likely needle localization left breast lumpectomy, possible optical plastic tissue transfer, possible mastopexy incision, sentinel node injection sentinel node biopsy left possible left axillary node dissection Risks and benefits of the procedures discussed with the patient and HER-2 sisters. Cc: Dr. Barrios
== END | disposition home or self-care (01) ==
LOC: WWCWWP 12:34
PROVIDERS: ATTEND Surgery
DX: Z53.9 Procedure and treatment not carried out, unspecified reason (principal)

== ENCOUNTER → 2022-04-27 | Outpatient (CLI) | payer MEDICARE, OTHER ==
[2022-04-27 15:07] VITALS: BP 168/82; PULSE 70; RESP 18; TEMP 98.9
--- NOTE | 2022-04-27 15:41 | P.PN ---
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 This was for a 6:00 central lesion which was 1.5 cm in size. Pathology revealed an invasive mucinous carcinoma ER/VA positive HER-2/gricel negative G1. She is seen in consultation for Dr. Barrios. [place] [address]. This revealed an area of concern in the left breast for which an ultrasound was performed this led to an ultrasound-guided core biopsy. The patient herself does not feel any lumps masses or nodules of concern in either breast. She is not complaining of any nipple discharge or skin changes. She's not had any recent trauma or infection in the breast. She's never had any breast biopsies or surgery on the breast. She herself has had lung cancer in 2007 treated with surgery no chemo or radiation [place] [address] An Oncotype was performed which was 14 Today testing was done which was negative by verbal report Caffeine:none nicotine: none hormones: none BCP: 8 years stopped at about age 38 chocolate: weekly Family History: maternal grandmother: breast cancer mother: pancreatic cancer sister: breast cancer, also lung and throat cancer sister: lung cancer (smoker) 2 brothers: lung cancer (smokers) patient had lung cancer 1/3 of lung removed; 2007; no evidence of cancer now; no chemo or radiation Hormonal history: Menarche: 16 M1, breast fed: no, age at first :21 menopause: 40 BCP: 8 years hormones: none Surgical history: Lung resection Tubal ligation bilateral knee replacement Medical history: HTN high cholesterol boarderline diabetic Social History: Attending: Negative Alcohol: none drugs: none - Constitutional Constitutional: Denies chills, Denies fever - EENT Eyes: denies blurred vision, denies pain Ears: deny: decreased hearing, tinnitus Ears, nose, mouth and throat: Denies headache, Denies sore throat - Breasts Breasts: bilateral: as per HPI - Cardiovascular Cardiovascular: Reports shortness of breath - Respiratory Respiratory: Reports as per HPI - Gastrointestinal Gastrointestinal: Denies abdominal pain, Denies diarrhea, Denies nausea, Denies vomiting - Genitourinary (Female) Genitourinary: Denies dysuria, Denies hematuria - Menstruation Menstruation: Reports postmenopausal - Musculoskeletal Musculoskeletal: Denies myalgias - Integumentary Integumentary: Denies pruritus, Denies rash - Neurological Neurological: Denies numbness, Denies weakness - Psychiatric Psychiatric: Denies anxiety, Denies depression - Endocrine Endocrine: Denies fatigue, Denies weight change - Hematologic/Lymphatic Comment: baby aspirin daily - Allergic/Immunologic Allergic/Immunologic: Reports as per HPI Objective - Vital Signs Vital signs: Vital Signs Temp 98.9 F 04/27/22 15:04 Pulse 70 04/27/22 15:04 Resp 18 04/27/22 15:04 BP 168/82 04/27/22 15:04 Pulse Ox 95 04/27/22 15:04 FiO2 Intake & Output 04/26/22 04/27/22 04/27/22 18:59 06:59 18:59 Weight 108.862 kg - Exam BMI: 41.2 - Constitutional General appearance: Present: cooperative - EENT Eyes: Present: EOMI ENT: Present: hearing grossly normal - Respiratory Respiratory: bilateral: CTA - Cardiovascular Rhythm: regular Heart sounds: normal: S1, S2 - Integumentary Integumentary: Present: normal turgor - Musculoskeletal Musculoskeletal: Present: gait normal - Psychiatric Psychiatric: Present: A&O x's 3, appropriate affect, intact judgment & insight - Additional findings Additional findings: Breast examination: BRA: 42C Inspection: Bilateral grade 3 ptosis Palpation: Right breast: Multi-positional exam fibrocystic changes no dominant masses or nodules of concern Right axilla: No adenopathy of concern Left breast: Multi-positional exam fibrocystic changes no dominant masses or nodules of concern Left axilla: No adenopathy of concern Assessment and Plan Assessment: Impression: HTN high cholesterol boarderline diabetic Stage IA invasive mucinous carcinoma Plan: Needle localization lumpectomy left breast, possible onco-Plastic tissue transfer, no mastopexy incision, sentinel node injection, sentinel node biopsy, possible left axillary node dissection Appears that the clip related to the biopsy migrated from the lesion and therefore needle localization should be by ultrasound guidance Risks and benefits of procedure discussed in detail with the patient and her family. They understand and she wishes to proceed. CC: Dr. Barrios
== END | disposition home or self-care (01) ==
LOC: WWCWWP 14:58
PROVIDERS: ATTEND Surgery
DX: Z53.9 Procedure and treatment not carried out, unspecified reason (principal)

== ENCOUNTER 2022-05-08 09:43 | Day surgery (SDC) | payer MEDICARE, OTHER ==
[2022-05-07 09:37] VITALS: BMI 40.5
[~2022-05-08 09:43] MED LIST changes: +DEXAMETHASONE SOD PHOSPHATE 4 MG/ML 1 ML VIAL IV ONE; +HEPARIN SODIUM,PORCINE/PF 5,000 UNIT/0.5 ML SYRINGE SQ PRN; +LACTATED RINGERS 1,000 ML IV SCH; +MIDAZOLAM 2 MG/2 ML VIAL IV PRN; +ONDANSETRON 4 MG/2 ML VIAL IVP ONE; +Pre Op ABX Message 1 EACH MISC MISCELLANE ONE; -TRANEXAMIC ACID 1,000 MG in SODIUM CHLORIDE 0.9% 100 ML IVPB ONE; -ceFAZolin IN SWFI 2 GM/20 ML SYRINGE IVP ONE
[2022-05-08 10:28] LABS: Glucose,Whole Blood 158 mg/dL (70-110)
[2022-05-08] MEDS ORDERED: ALPRAZolam 0.25 MG TAB ONE ×2 (10:29→10:40)
[2022-05-08] MEDS ORDERED: ALPRAZolam 0.25 MG TAB PO ONE ×2 (10:40→10:41)
[2022-05-08] MEDS ORDERED: SCOPOLAMINE 1 MG/72 HR PATCH TRANSDERM ONE (10:45)
[2022-05-08] MEDS ORDERED: LIDOCAINE 1% INJ 10MG/ML (20 ML MDV) SQ ONE (12:06)
--- NOTE | 2022-05-08 13:01 | USB ---
Risk Values: Melony 5 year model risk: 1.1%. NCI Lifetime model risk: 3.2%. Pathology Description: Location: 6 o'clock. Marker Left Behind. Needle Type: 7 cm [place] Pathology Results: Results pending. Electronically signed and approved by: Jose Fortune D.O.
--- NOTE | 2022-05-08 13:54 | MM ---
Reason for Exam: Post Procedure Mammogram. Patient History: 05/08/2022, US breast localization LT on the Left side. Risk Values: Melony 5 year model risk: 1.4%. NCI Lifetime model risk: 3.8%. Tissue Density: Left: The breast tissue is heterogeneously dense. This may lower the sensitivity of mammography. Overall Assessment: Known biopsy proven malignancy, BI-RAD 6 Management: Surgical Consultation Electronically signed and approved by: Jose Fortune D.O.
--- NOTE | 2022-05-08 14:21 | P.NAPBC ---
NAPBC Queries - NAPBC Queries Was patient's case review presented at [facility] tumor board? If no, comment.: Yes Was patient's pathology reviewed at [facility]? If no, comment.: Yes Was breast conservation surgery offered? If no, comment.: Yes Was sentinel node biopsy offered? If no, comment.: Yes Was diagnosis confirmed by percutaneous core biopsy? If no, comment.: Yes Is patient mastectomy patient?: No Was a preop referral to reconstructive surgeon offered?: No Clinical Stage: Stage IA left breast mucinous cancer; [id number]+Pr+Her2-G1
--- NOTE | 2022-05-08 14:44 | NM ---
EXAMINATION TYPE: NM sentinel node injection DATE OF EXAM: 05/08/2022 COMPARISON: NONE HISTORY: Left breast cancer TECHNIQUE AND FINDINGS: The procedure of sentinel lymph node injection was explained to the patient. The benefits, alternatives, and risks were discussed. An informed consent was then obtained. Overlying skin is cleaned with sterile alcohol. Following this, 472 uCi Tc99m Tilmanocept was inject ed in the upper outer aspect of the left nipple intradermally. The patient tolerated the procedure well without any immediate complication. The patient was kept in the radiology department for short stay after the procedure and then taken to surgery for surgical p rocedure what is presumed intraoperative gamma probe will be used for sentinel lymph node detection. IMPRESSION: Left breast radiotracer injection for sentinel node localization as above.
[2022-05-08] MEDS ORDERED: LIDOCAINE 2% INJ 20 MG/ML (2 ML VIAL) ONE (14:48)
[2022-05-08] MEDS ORDERED: ceFAZolin 1,000 MG VIAL ONE (14:48)
[2022-05-08] MEDS ORDERED: MIDAZOLAM 2 MG/2 ML VIAL ONE (14:48)
[2022-05-08] MEDS ORDERED: fentaNYL (PF) 50 MCG/ML 2 ML AMP ONE (14:48)
[2022-05-08] MEDS ORDERED: PROPOFOL 10 MG/ML 20 ML VIAL IV ONE (14:48)
[2022-05-08] MEDS ORDERED: SUCCINYLCHOLINE CHLORIDE 200 MG/10 ML VIAL IV ONE (14:48)
--- NOTE | 2022-05-08 16:08 | MM ---
Risk Values: Melony 5 year model risk: 1.4%. NCI Lifetime model risk: 3.8%. Electronically signed and approved by: Jose Fortune D.O.
--- NOTE | 2022-05-08 16:51 | P.OP ---
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 Postoperative Diagnosis: Same Procedure(s) Performed: Left breast needle localization lumpectomy with onco-plastic tissue transfer 63 cm, sentinel node mapping, sentinel node biopsy left axilla Anesthesia: KENNY Surgeon: Anny Raymundo Estimated Blood Loss (ml): 20 IV fluids (ml): 350 Pathology: other (Left breast tissue, left sentinel node biopsy) Condition: stable Disposition: same day Indications for Procedure: Biopsy-proven left breast invasive mucinous carcinoma Operative Findings: Left breast cancer, left axillary adenopathy Description of Procedure: The patient was taken to the operative suite and following induction of anesthesia the Gisela counter was used to interrogate the left axilla. No radioactivity was identified. Therefore 5 mL of methylene blue diluted was injected in the periareolar area and the breast was massaged. Following this the left breast and axilla were prepped and draped in a sterile fashion. The left axilla was approached initially. An incision was made and carried down to the axillary tissue. No radioactive or blue lymph nodes were identified. At this point this portion of the procedure was aborted. The area of the left breast was approached via in inferior periareolar incision. This was carried down to the hook of the needle. Surrounding tissue was excised. The cavity was 8 x 4 cm. Additional superior inferior anterior and medial tissue was obtained. Posterior dissection was onto the pectoralis major muscle. The lateral area of dissection seemed to be remote from the tumor. A superior flap of 7 x 3 cm was formed and inferior flap of 3 x 6 cm was formed. Total hyperplastic tissue transfer was 63 cm. The specimen was painted for orientation. Titanium clips were placed. Radiograph of the specimen revealed the area of concern about removed. The flaps were brought together using 3-0 Vicryl suture. This is followed by closure of this subcutaneous tissue with 3-0 Vicryl suture. The skin was closed using 4-0 Monocryl. Gloves were changed and the area of the axilla was again approached. This time several palpable nodes were identified and these were removed. The deep tissues were closed using 3-0 Vicryl suture. The skin was closed using 4-0 Monocryl. All instrument and sponge counts were correct at the end of the case. The patient tolerated the procedure in stable condition.
--- NOTE | 2022-05-08 16:53 | P.DS ---
Providers Attending physician: Anny Raymundo Primary care physician: Feliz Barrios Plan - Discharge Summary New Discharge Prescriptions: No Action Lisinopril-Hctz 20-12.5 mg [Zestoretic 20-12.5] 1 tab PO DAILY atenoloL [Tenormin] 50 mg PO DAILY Pravastatin Sodium 80 mg PO DAILY Gabapentin [Neurontin] 400 mg PO QID Cyclobenzaprine [Flexeril] 10 mg PO HS metFORMIN HCL ER [Glucophage Xr] 500 mg PO W/SUPPER Aspirin 81 mg PO DAILY Discharge Medication List Cyclobenzaprine [Flexeril] 10 mg PO HS 05/24/16 [History] Gabapentin [Neurontin] 400 mg PO QID 05/24/16 [History] Lisinopril-Hctz 20-12.5 mg [Zestoretic 20-12.5] 1 tab PO DAILY 05/24/16 [History] Pravastatin Sodium 80 mg PO DAILY 05/24/16 [History] atenoloL [Tenormin] 50 mg PO DAILY 05/24/16 [History] metFORMIN HCL ER [Glucophage Xr] 500 mg PO W/SUPPER 11/08/20 [History] Aspirin 81 mg PO DAILY 03/22/22 [History] Follow up Appointment(s)/Referral(s): Anny Raymundo MD [STAFF PHYSICIAN] - 1 Week Patient Instructions/Handouts: *Surgery [facility] - Scopalamine Patch Instructions Activity/Diet/Wound Care/Special Instructions: Do not drive for 24 hours after discharge from the hospital Do not drive if taking narcotic pain medication Wear bra at all times May shower after 48 hours Discharge Disposition: HOME SELF-CARE
[2022-05-08] MEDS: HYDROmorphone 0.5 MG/0.5 ML SYRINGE IVP PRN ×3 (17:21→18:17)
[2022-05-08 17:41] VITALS: TEMP 97
[2022-05-08 18:35] VITALS: RESP 16
[2022-05-08 18:49] VITALS: BP 154/70; PULSE 74
== END 2022-05-08 19:12 | disposition home or self-care (01) ==
LOC: OR 09:43
PROVIDERS: ATTEND Surgery
DX: D05.12 Intraductal carcinoma in situ of left breast (principal); N60.12 Diffuse cystic mastopathy of left breast; I10 Essential (primary) hypertension; E11.69 Type 2 diabetes mellitus with other specified complication; E78.5 Hyperlipidemia, unspecified; M19.90 Unspecified osteoarthritis, unspecified site; Z85.118 Personal history of other malignant neoplasm of bronchus and lung; Z79.84 Long term (current) use of oral hypoglycemic drugs; Z79.899 Other long term (current) drug therapy; Z90.2 Acquired absence of lung [part of]; Z79.82 Long term (current) use of aspirin; Z80.9 Family history of malignant neoplasm, unspecified; Z82.49 Family history of ischemic heart disease and other diseases of the circulatory system
CPT/HCPCS: 19301; 14301; 14302; 38525; 38900; 77065; 76098; 19285; 38792; A9520; J2250; J0330; J1100; J2405; J0690; J2001 ×2; J3010; J2704; J1170; J1644; 88307; 88341; 88342

== ENCOUNTER → 2022-05-18 | Outpatient (CLI) | payer MEDICARE, OTHER ==
[2022-05-18 14:03] VITALS: BP 161/86; PULSE 77; RESP 18; TEMP 98.5
--- NOTE | 2022-05-18 14:18 | P.PN ---
Progress Note - Text Progress Note Date: 05/18/22 Pathologic Stage: [id number] 14 Rina is a 71 year old female status post left breast lumpectomy and sentinel node biopsy performed on . The lesion was 11 mm in size. Her normal status was negative for any metastatic disease. 3 nodes were examined. Patient without complaints. Exam: Breast: incision clean and dry under arm and on breast lungs: clear heart: RRR Impression: Patient doing well postoperative Follow-up medical oncology Follow-up radiation oncology Follow-up here in 4 months CC: Dr. Barrios
== END ==
LOC: WWCWWP 13:29
PROVIDERS: ATTEND Surgery
DX: Z48.817 Encounter for surgical aftercare following surgery on the skin and subcutaneous tissue (principal); Z98.890 Other specified postprocedural states

== ENCOUNTER → 2023-03-11 | Outpatient (CLI) | payer MEDICARE, OTHER ==
--- NOTE | 2023-03-11 11:23 | MM ---
Reason for Exam: Additional evaluation requested from prior study. Last mammogram was performed 1 year(s) and 1 month(s) ago. Patient History: Menarche at age 16. First Full-Term at age 21. Breast cancer, left, age 71. 03/01/2022, US biopsy breast VAD RT on the Left side. 05/08/2022, Lumpectomy on the Left side. 05/08/2022, Malignant US breast localization LT on the left side. Maternal grandmother had breast cancer at or over age 50. Sister had breast cancer, age 39. Last menstrual period: Prior Study Comparison: 02/19/2022 Bilateral MG 3D [facility]. Tissue Density: The breast tissue is heterogeneously dense. This may lower the sensitivity of mammography. Findings: Analyzed By CAD. Pattern appears unremarkable. Surgical clips are present within posterior left breast. Scar marker is utilized on the anterior left breast. Benign vascular calcifications present bilaterally. No suspicious groups of microcalcifications, spiculated or lobular masses, architectural distortion or other secondary signs of malignancy are mammographically apparent. Overall Assessment: Benign, BI-RAD 2 Management: Diagnostic Mammogram of both breasts in 1 year. A negative mammogram report should not preclude additional follow up of suspicious palpable abnormalities. Patient should continue monthly self breast exam. A clinical breast exam by your physician is recommended on an annual basis and results should be correlated with mammographic findings. Electronically signed and approved by: Agustin Geiger D.O. Radiologis
== END | disposition home or self-care (01) ==
LOC: RADMAMWWP 10:46
PROVIDERS: ATTEND Surgery
DX: R92.8 Other abnormal and inconclusive findings on diagnostic imaging of breast (principal); Z85.3 Personal history of malignant neoplasm of breast; Z80.3 Family history of malignant neoplasm of breast
CPT/HCPCS: 77062; 77066

== ENCOUNTER → 2023-03-18 | Outpatient (CLI) | payer MEDICARE, OTHER ==
--- NOTE | 2023-03-18 11:01 | P.PN ---
Subjective Progress Note Date: 03/18/23 Principal diagnosis: stage IA left breast invasive mucinous carcinoma 2021 Stage IA left breast invasive ductal cancer Stage IA invasive well-differentiated mucinous Mucinous carcinoma left breast 2021 Rina is a 72-year-old white female status post ultrasound-guided core bio psy of the left breast on . This was for a 6:00 central lesion which was 1.5 cm in size. Pathology revealed an invasive mucinous carcinoma ER/AR positive HER-2/gricel negative G1. She was seen in consultation for Dr. Barrios. She underwent a bilateral screening mammogram on . This revealed an area of concern in the left breast for which an ultrasound was performed this led to an ultrasound-guided core biopsy. The patient herself does not feel any lumps masses or nodules of concern in either breast. She was not complaining of any nipple discharge or skin changes. She denied any recent trauma or infection in the breast. She underwent a lumpectomy and SNB on 05-08-22 The lesion was 11 mm and (-) margins. Three nodes were (-). She is not complaining of any new lumps masses or nodules of concern in either breast. She did have some discomfort under her left arm which has since resolved. She had a bilateral mammogram on 03-11-23 which is BIRAD 2 She completed a week of radiation therapy on 06-22-22, this was ultra- hypofractionated and for 5 days. She developed some skin changes after the therapy. The skin changes have healed. Note radiation oncology 12-25-22 reviewed She is on Anestrazole and is tolerating this. Note Medical oncology reviewed. 01-07-23 She herself has had lung cancer in 2007 treated with surgery no chemo or radiation [place] [id number] An Oncotype was performed which was 14 Genetic testing was done which was negative by verbal report Caffeine:none nicotine: none hormones: none BCP: 8 years stopped at about age 38 chocolate: weekly Family History: maternal grandmother: breast cancer mother: pancreatic cancer sister: breast cancer, also lung and throat cancer sister: lung cancer (smoker) 2 brothers: lung cancer (smokers) patient had lung cancer 1/3 of lung removed; 2007; no evidence of cancer now; no chemo or radiation Hormonal history: Menarche: 16 M1, breast fed: no, age at first :21 menopause: 40 BCP: 8 years hormones: none Surgical history: Lung resection Tubal ligation bilateral knee replacement left bresat lumpectomy and SNB Medical history: HTN high cholesterol boarderline diabetic Social History: Attending: Negative Alcohol: none drugs: none - Constitutional Constitutional: Denies chills, Denies fever - EENT Eyes: denies blurred vision, denies pain Ears: deny: decreased hearing, tinnitus Ears, nose, mouth and throat: Denies headache, Denies sore throat - Breasts Breasts: bilateral: as per HPI - Cardiovascular Cardiovascular: Reports shortness of breath - Respiratory Respiratory: Reports as per HPI - Gastrointestinal Gastrointestinal: Denies abdominal pain, Denies diarrhea, Denies nausea, Denies vomiting - Genitourinary (Female) Genitourinary: Denies dysuria, Denies hematuria - Menstruation Menstruation: Reports postmenopausal - Musculoskeletal Musculoskeletal: Denies myalgias - Integumentary Integumentary: Denies pruritus, Denies rash - Neurological Neurological: Denies numbness, Denies weakness - Psychiatric Psychiatric: Denies anxiety, Denies depression - Endocrine Endocrine: Denies fatigue, Denies weight change - Hematologic/Lymphatic Comment: baby aspirin daily - Allergic/Immunologic Allergic/Immunologic: Reports as per HPI Objective - Constitutional General appearance: Present: cooperative - EENT Eyes: Present: EOMI ENT: Present: hearing grossly normal - Neck Neck: Present: normal ROM - Respiratory Respiratory: bilateral: CTA - Cardiovascular Rhythm: regular Heart sounds: normal: S1, S2 - Gastrointestinal General gastrointestinal: Present: soft - Integumentary Integumentary: Present: normal turgor - Musculoskeletal Musculoskeletal: Present: gait normal - Psychiatric Psychiatric: Present: A&O x's 3, appropriate affect, intact judgment & insight - Additional findings Additional findings: Breast Exam: BRA: 44C Inspection: Bilateral grade 3 ptosis Palpation: Right breast: Multi-positional exam fibrocystic changes no dominant masses or nodules of concern; ongoing infection under the right breast Right axilla: No adenopathy of concern Left breast: Well-healed scar from prior surgery, postsurgical and radiation changes otherwise no dominant masses or nodules of concern a multi-positional exam Left axilla: No adenopathy of concern incision clean and dry and well-healed Assessment and Plan Assessment: Impression: HTN high cholesterol boarderline diabetic Left breast stage IA invasive ductal carcinoma no evidence of any recurrence, patient has completed a course of radiation therapy and is on anastrozole her Oncotype score was 14 Fungal infection under the right breast A lateral mammogram February 2023 BIRAD 2 Plan: Continue anastrozole Continue follow-up with medical and radiation oncology Bilateral mammogram in 1 year with examination at that time Follow-up in 6 months Nystatin secondary to fungal infection under right breast CC: Dr. Barrios
[2023-03-18 12:03] VITALS: BP 173/83; PULSE 68; RESP 18; TEMP 98.3
== END ==
LOC: WWCWWP 10:27
PROVIDERS: ATTEND Surgery
DX: D05.12 Intraductal carcinoma in situ of left breast (principal); I10 Essential (primary) hypertension; E78.00 Pure hypercholesterolemia, unspecified; E11.9 Type 2 diabetes mellitus without complications; Z17.0 Estrogen receptor positive status [ER+]; Z80.3 Family history of malignant neoplasm of breast; Z79.811 Long term (current) use of aromatase inhibitors; Z96.653 Presence of artificial knee joint, bilateral; Z92.3 Personal history of irradiation; Z79.899 Other long term (current) drug therapy; Z79.84 Long term (current) use of oral hypoglycemic drugs

== ENCOUNTER → 2023-10-10 | Outpatient (CLI) | payer MEDICARE, OTHER ==
--- NOTE | 2023-10-10 14:24 | P.PN ---
Subjective Progress Note Date: 10/10/23 stage IA left breast invasive mucinous carcinoma 2021 Stage IA invasive well-differentiated mucinous Mucinous carcinoma left breast 2021 Rina is a 73-year-old white female status post ultrasound-guided core biopsy of the left breast on . This was for a 6:00 central lesion which was 1.5 cm in size. Pathology revealed an invasive mucinous carcinoma ER/NC positive HER-2/gricel negative G1. She was seen in consultation for Dr. Barrios. She underwent a bilateral screening mammogram on . This revealed an area of concern in the left breast for which an ultrasound was performed this led to an ultrasound-guided core biopsy. The patient herself does not feel any lumps masses or nodules of concern in either breast. She was not complaining of any nipple discharge or skin changes. She denied any recent trauma or infection in the breast. case presented at tumor board on 04-03-22 She underwent a lumpectomy and SNB on 05-08-22 The lesion was 11 mm and (-) margins. Three nodes were (-). She is not complaining of any new lumps masses or nodules of concern in either breast. She did have some discomfort under her left arm which has since resolved. She had a bilateral mammogram on 03-11-23 which is BIRAD 2 She completed a week of radiation therapy on 06-22-22, this was ultra-hy pofractionated and for 5 days. She developed some skin changes after the therapy. The skin changes have healed. Note radiation oncology 12-25-22 reviewed She is on Anestrazole and is tolerating this. Note Medical oncology reviewed 07-11-23 oncotype 14 She herself has had lung cancer in 2007 treated with surgery no chemo or radiation Genetic testing was done which was negative by verbal report 10-10-23 She is not complaining of any new lumps masses or nodules of concern in either breast. She is not having any complaints related to her prior lung cancer. Symmetry of the breast with the right breast being larger than the left breast. This makes it difficult to find closed if it at times. Caffeine:none nicotine: none hormones: none BCP: 8 years stopped at about age 38 chocolate: weekly Family History: maternal grandmother: breast cancer mother: pancreatic cancer sister: breast cancer, also lung and throat cancer sister: lung cancer (smoker) 2 brothers: lung cancer (smokers) patient had lung cancer 1/3 of lung removed; 2007; no evidence of cancer now; no chemo or radiation Hormonal history: Menarche: 16 M1, breast fed: no, age at first :21 menopause: 40 BCP: 8 years hormones: none Surgical history: Lung resection Tubal ligation bilateral knee replacement left breast lumpectomy and SNB Medical history: HTN high cholesterol boarderline diabetic Social History: Attending: Negative Alcohol: none drugs: none - Constitutional Constitutional: Denies chills, Denies fever - EENT Eyes: denies blurred vision, denies pain Ears: deny: decreased hearing, tinnitus Ears, nose, mouth and throat: Denies headache, Denies sore throat - Breasts Breasts: bilateral: as per HPI - Cardiovascular Cardiovascular: Reports shortness of breath - Respiratory Respiratory: Reports as per HPI - Gastrointestinal Gastrointestinal: Denies abdominal pain, Denies diarrhea, Denies nausea, Denies vomiting - Genitourinary (Female) Genitourinary: Denies dysuria, Denies hematuria - Menstruation Menstruation: Reports postmenopausal - Musculoskeletal Musculoskeletal: Denies myalgias - Integumentary Integumentary: Denies pruritus, Denies rash - Neurological Neurological: Denies numbness, Denies weakness - Psychiatric Psychiatric: Denies anxiety, Denies depression - Endocrine Endocrine: Denies fatigue, Denies weight change - Hematologic/Lymphatic Comment: baby aspirin daily - Allergic/Immunologic Allergic/Immunologic: Reports as per HPI Objective - Constitutional General appearance: Present: cooperative - EENT Eyes: Present: EOMI ENT: Present: hearing grossly normal - Neck Neck: Present: normal ROM - Respiratory Respiratory: bilateral: CTA - Cardiovascular Heart sounds: normal: S1, S2 - Integumentary Integumentary: Present: normal turgor - Musculoskeletal Musculoskeletal: Present: gait normal - Psychiatric Psychiatric: Present: A&O x's 3, appropriate affect, intact judgment & insight - Additional findings Additional findings: Breast Exam: BRA: 44C Inspection: Bilateral grade 3 ptosis; right breast larger than left breast Palpation: Right breast: Multi-positional exam fibrocystic changes no dominant masses or nodules of concern Right axilla: No adenopathy of concern Left breast: Well-healed scar from prior surgery, postsurgical and radiation changes otherwise no dominant masses or nodules of concern a multi-positional exam Left axilla: No adenopathy of concern incision well-healed Assessment and Plan Assessment: Impression: HTN high cholesterol boarderline diabetic Left breast stage IA invasive ductal carcinoma no evidence of any recurrence, patient has completed a course of radiation therapy and is on anastrozole her Oncotype score was 14 Symmetry of the breast A bilateral mammogram February 2023 BIRAD 2 Plan: Continue anastrozole Continue follow-up with medical and radiation oncology Bilateral mammogram in February 2024 year with examination at that time She is going to consider a right breast reduction mammoplasty and will let us know. CC: Dr. Barrios
[2023-10-10 15:48] VITALS: BP 176/86; PULSE 63; RESP 18; TEMP 98.6
== END ==
LOC: WWCWWP 13:41
PROVIDERS: ATTEND Surgery
DX: Z12.31 Encounter for screening mammogram for malignant neoplasm of breast (principal); I10 Essential (primary) hypertension; E78.00 Pure hypercholesterolemia, unspecified; R73.03 Prediabetes; Z85.3 Personal history of malignant neoplasm of breast; Z80.3 Family history of malignant neoplasm of breast; Z98.51 Tubal ligation status; Z92.3 Personal history of irradiation; Z79.82 Long term (current) use of aspirin; Z79.899 Other long term (current) drug therapy

== ENCOUNTER → 2024-03-17 | Outpatient (CLI) | payer MEDICARE, OTHER ==
--- NOTE | 2024-03-17 15:20 | MM ---
Reason for Exam: Hx of breast cancer, conservation therapy. Last screening mammogram was performed 12 month(s) ago. Patient History: Menarche at age 16. First Full-Term at age 21. Breast cancer, left, age 71. Previous chest radiation therapy at age 71. 03/01/2022, US biopsy breast VAD RT on the Left side. 05/08/2022, Lumpectomy on the Left side. 05/08/2022, Malignant US breast localization LT on the left side. Maternal grandmother had breast cancer at or over age 50. Sister had breast cancer, age 39. Prior Study Comparison: 02/19/2022 Bilateral MG 3D screening mammo w/cad, [facility]. 05/08/2022 Left MG diagnostic mammo LT wo CAD., [facility]. 03/11/2023 Bilateral MG 3D diag mammo w/cad [facility], [facility]. Tissue Density: There are scattered areas of fibroglandular density. Findings: Analyzed By CAD. The pattern is symmetrical. There is a focal curvilinear density within the left breast at the lumpectomy site. Benign vascular calcifications present bilaterally. No suspicious groups of microcalcifications, spiculated or lobular masses, architectural distortion or other secondary signs of malignancy are mammographically apparent. Overall Assessment: Benign, BI-RAD 2 Management: Diagnostic Mammogram of both breasts in 1 year. A negative mammogram report should not preclude additional follow up of suspicious palpable abnormalities. Patient should continue monthly self breast exam. A clinical breast exam by your physician is recommended on an annual basis and results should be correlated with mammographic findings. Note on Melony scores and lifetime risk: 1. A Melony score greater than 3% is considered moderate risk. If this is the case, consider specialist referral to assess eligibility for a risk reducing agent. 2. If overall lifetime risk for the development of breast cancer is 20% or higher, the patient may qualify for future screening with alternating mammogram and breast MRI. Electronically signed and approved by: Agustin Geiger D.O. Radiologis
== END | disposition home or self-care (01) ==
LOC: RADMAMWWP 13:38
PROVIDERS: ATTEND Surgery
DX: R92.323 Mammographic fibroglandular density, bilateral breasts (principal); R92.1 Mammographic calcification found on diagnostic imaging of breast; Z85.3 Personal history of malignant neoplasm of breast; Z80.3 Family history of malignant neoplasm of breast
CPT/HCPCS: 77062; 77066

== ENCOUNTER → 2024-03-26 | Outpatient (CLI) | payer MEDICARE, OTHER ==
--- NOTE | 2024-03-26 13:04 | P.PN ---
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 This was for a 6:00 central lesion which was 1.5 cm in size. Pathology revealed an invasive mucinous carcinoma ER/SC positive HER-2/gricel negative G1. She was seen in consultation for Dr. Barrios. She underwent a bilateral screening mammogram on . This revealed an area of concern in the left breast for which an ultrasound was performed this led to an ultrasound-guided core biopsy. The patient herself does not feel any lumps masses or nodules of concern in either breast. She was not complaining of any nipple discharge or skin changes. She denied any recent trauma or infection in the breast. case presented at tumor board on 04-03-22 She underwent a lumpectomy and SNB on 05-08-22 The lesion was 11 mm and (-) margins. Three nodes were (-). She is not complaining of any new lumps masses or nodules of concern in either breast. She did have some discomfort under her left arm which has since resolved. She had a bilateral mammogram on 03-17-24 which is BIRAD 2 She completed a week of radiation therapy on 06-22-22, this was ultra- hypofractionated and for 5 days. She developed some skin changes after the therapy. The skin changes have healed. She is on Anestrazole and is tolerating this. Note Medical oncology reviewed 03-20-24 oncotype 14 She herself has had lung cancer in 2007 treated with surgery no chemo or radiation Genetic testing was done which was negative by verbal report She is not complaining of any new lumps masses or nodules of concern in either breast. She is not having any complaints related to her prior lung cancer. Asymmetry of the breast with the right breast being larger than the left breast. This makes it difficult to find clothes to fit at times. Caffeine:none nicotine: none hormones: none BCP: 8 years stopped at about age 38 chocolate: weekly Family History: maternal grandmother: breast cancer mother: pancreatic cancer sister: breast cancer, also lung and throat cancer sister: lung cancer (smoker) 2 brothers: lung cancer (smokers) patient had lung cancer 1/3 of lung removed; 2007; no evidence of cancer now; no chemo or radiation Hormonal history: Menarche: 16 M1, breast fed: no, age at first :21 menopause: 40 BCP: 8 years hormones: none Surgical history: Lung resection Tubal ligation bilateral knee replacement left breast lumpectomy and SNB Medical history: HTN high cholesterol boarderline diabetic Social History: Attending: Negative Alcohol: none drugs: none - Constitutional Constitutional: Denies chills, Denies fever - EENT Eyes: denies blurred vision, denies pain Ears: deny: decreased hearing, tinnitus Ears, nose, mouth and throat: Denies headache, Denies sore throat - Breasts Breasts: bilateral: as per HPI - Cardiovascular Cardiovascular: Reports shortness of breath - Respiratory Respiratory: Reports as per HPI - Gastrointestinal Gastrointestinal: Denies abdominal pain, Denies diarrhea, Denies nausea, Denies vomiting - Genitourinary (Female) Genitourinary: Denies dysuria, Denies hematuria - Menstruation Menstruation: Reports postmenopausal - Musculoskeletal Musculoskeletal: Denies myalgias - Integumentary Integumentary: Denies pruritus, Denies rash - Neurological Neurological: Denies numbness, Denies weakness - Psychiatric Psychiatric: Denies anxiety, Denies depression - Endocrine Endocrine: Denies fatigue, Denies weight change - Hematologic/Lymphatic Comment: baby aspirin daily - Allergic/Immunologic Allergic/Immunologic: Reports as per HPI Objective - Constitutional General appearance: Present: cooperative - EENT Eyes: Present: EOMI ENT: Present: hearing grossly normal - Neck Neck: Present: normal ROM - Respiratory Respiratory: bilateral: CTA - Cardiovascular Heart sounds: normal: S1, S2 - Integumentary Integumentary: Present: normal turgor - Musculoskeletal Musculoskeletal: Present: gait normal - Psychiatric Psychiatric: Present: A&O x's 3, appropriate affect, intact judgment & insight - Additional findings Additional findings: Breast Exam: BRA: 44C Inspection: Bilateral grade 3 ptosis; right breast larger than left breast Palpation: Right breast: Multi-positional exam fibrocystic changes no dominant masses or nodules of concern Right axilla: No adenopathy of concern Left breast: Well-healed scar from prior surgery, postsurgical and radiation changes otherwise no dominant masses or nodules of concern a multi-positional exam Left axilla: No adenopathy of concern incision well-healed Assessment and Plan Assessment: Impression: HTN high cholesterol boarderline diabetic Left breast stage IA invasive ductal carcinoma no evidence of any recurrence, patient has completed a course of radiation therapy and is on anastrozole her Oncotype score was 14 Symmetry of the breast A bilateral mammogram February 2023 BIRAD 2 Plan: Continue anastrozole Continue follow-up with medical and radiation oncology Bilateral mammogram in March 2025 with examination at that time She has decided against a right breast reduction mammoplasty CC: Dr. Barrios
[2024-03-26 13:07] VITALS: BP 116/72; PULSE 71; RESP 17; TEMP 97.8
== END ==
LOC: WWCWWP 12:22
PROVIDERS: ATTEND Surgery
DX: N64.89 Other specified disorders of breast (principal); E78.00 Pure hypercholesterolemia, unspecified; I10 Essential (primary) hypertension; R73.03 Prediabetes; Z92.3 Personal history of irradiation; Z80.3 Family history of malignant neoplasm of breast; Z85.3 Personal history of malignant neoplasm of breast; Z79.899 Other long term (current) drug therapy; Z79.84 Long term (current) use of oral hypoglycemic drugs

== ENCOUNTER → 2025-03-16 | Outpatient (CLI) | payer MEDICARE, OTHER ==
--- NOTE | 2025-03-16 08:18 | MM ---
Reason for Exam: Hx of breast cancer, conservation therapy. Last screening mammogram was performed 12 month(s) ago. Patient History: Menarche at age 16. First Full-Term at age 21. Breast cancer, left, age 71. Previous chest radiation therapy at age 71. 03/01/2022, US biopsy breast VAD RT on the Left side. 05/08/2022, Lumpectomy on the Left side. 05/08/2022, Malignant US breast localization LT on the left side. Maternal grandmother had breast cancer at or over age 50. Sister had breast cancer, age 39. Prior Study Comparison: 02/19/2022 Bilateral MG 3D screening mammo w/cad, [facility]. 05/08/2022 Left MG diagnostic mammo LT wo CAD., [facility]. 03/11/2023 Bilateral MG 3D diag mammo w/cad [facility], [facility]. 03/17/2024 Bilateral MG 3D diag mammo w/cad [facility], [facility]. Tissue Density: There are scattered areas of fibroglandular density. Findings: Analyzed By CAD. Persistent posttreatment changes to the left breast with diminished size and central surgical clips along with dystrophic calcification. Persistent vascular calcification in the bilateral breasts. No suspicious new mass or worrisome cluster of microcalcification in either breast. Overall Assessment: Benign, BI-RAD 2 Management: Diagnostic Mammogram of both breasts in 1 year. . Results were given to the patient verbally at the time of exam. Patient should continue monthly self-breast exams. A clinical breast exam by your physician is recommended on an annual basis. This exam should not preclude additional follow-up of suspicious palpable abnormalities. Note on Melony scores and lifetime risk: 1. A Melony score greater than 3% is considered moderate risk. If this is the case, consider specialist referral to assess eligibility for a risk reducing agent. 2. If overall lifetime risk for the development of breast cancer is 20% or higher, the patient may qualify for future screening with alternating mammogram and breast MRI. [facility], , 03/16/2025 8:15 AM. Electronically signed and approved by: Chandana Schrader M.D.
== END | disposition home or self-care (01) ==
LOC: RADMAMWWP 07:45
PROVIDERS: ATTEND Surgery
DX: R92.323 Mammographic fibroglandular density, bilateral breasts (principal); R92.1 Mammographic calcification found on diagnostic imaging of breast; Z80.3 Family history of malignant neoplasm of breast; Z85.3 Personal history of malignant neoplasm of breast
CPT/HCPCS: 77062; 77066

== ENCOUNTER → 2025-03-19 | Outpatient (CLI) | payer MEDICARE, OTHER ==
[2025-03-19 09:52] VITALS: BP 178/75; PULSE 72; RESP 17; TEMP 98.7
--- NOTE | 2025-03-19 10:20 | P.PN ---
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 This was for a 6:00 central lesion which was 1.5 cm in size. Pathology revealed an invasive mucinous carcinoma ER/MS positive HER-2/gricel negative G1. She was seen in consultation for Dr. Barrios. She underwent a bilateral screening mammogram on . This revealed an area of concern in the left breast for which an ultrasound was performed this led to an ultrasound-guided core biopsy. The patient herself does not feel any lumps masses or nodules of concern in either breast. She was not complaining of any n ipple discharge or skin changes. She denied any recent trauma or infection in the breast. case presented at tumor board on 04-03-22 She underwent a lumpectomy and SNB on 05-08-22 The lesion was 11 mm and (-) margins. Three nodes were (-). She is not complaining of any new lumps masses or nodules of concern in either breast. She did have some discomfort under her left arm which has since resolved. She had a bilateral mammogram on 03-11-23 which is BIRAD 2 She completed a week of radiation therapy on 06-22-22, this was ultra- hypofractionated and for 5 days. She developed some skin changes after the therapy. The skin changes have healed. Note radiation oncology 12-25-22 reviewed She is on Anestrazole and is tolerating this. Note Medical oncology reviewed 07-11-23 oncotype 14 She herself has had lung cancer in 2007 treated with surgery no chemo or radiation Genetic testing was done which was negative by verbal report 03-19-25 Rina is a 74 year old female status post left breast lumpectomy and sentinel node biopsy on 05-08-2022. She is not complaining of any new lumps masses or nodules of concern in either breast. She is not having any complaints related to her prior lung cancer. Asymmetry of the breast with the right breast being larger than the left breast. This makes it difficult to find clothes to f t at times. She underwent a lumpectomy and SNB on 05-08-22 The lesion was 11 mm and (-) margins. Three nodes were (-). She is not complaining of any new lumps masses or nodules of concern in either breast. She did have some discomfort under her left arm which has since resolved. She completed a week of radiation therapy on 06-22-22, this was ultra- hypofractionated and for 5 days. She developed some skin changes after the therapy. The skin changes have healed. Note radiation oncology 12-25-22 reviewed She is on Anestrazole and is tolerating this. oncotype 14 She herself has had lung cancer in 2007 treated with surgery no chemo or radiation Bilateral mammogram on 03-16-25 BIRAD 2 Caffeine:none nicotine: none hormones: none BCP: 8 years stopped at about age 38 chocolate: weekly Family History: maternal grandmother: breast cancer mother: pancreatic cancer sister: breast cancer, also lung and throat cancer sister: lung cancer (smoker) 2 brothers: lung cancer (smokers) patient had lung cancer 1/3 of lung removed; 2007; no evidence of cancer now; no chemo or radiation Hormonal history: Menarche: 16 M1, breast fed: no, age at first :21 menopause: 40 BCP: 8 years hormones: none Surgical history: Lung resection Tubal ligation bilateral knee replacement left breast lumpectomy and SNB left foot removed part of bone Medical history: HTN high cholesterol borderline diabetic Social History: Attending: Negative Alcohol: none drugs: none - Constitutional Constitutional: Denies chills, Denies fever - EENT Eyes: denies blurred vision, denies pain Ears: deny: decreased hearing, tinnitus Ears, nose, mouth and throat: Denies headache, Denies sore throat - Breasts Breasts: bilateral: as per HPI - Cardiovascular Cardiovascular: Reports shortness of breath - Respiratory Respiratory: Reports as per HPI - Gastrointestinal Gastrointestinal: Denies abdominal pain, Denies diarrhea, Denies nausea, Denies vomiting - Genitourinary (Female) Genitourinary: Denies dysuria, Denies hematuria - Menstruation Menstruation: Reports postmenopausal - Musculoskeletal Musculoskeletal: Denies myalgias - Integumentary Integumentary: Denies pruritus, Denies rash - Neurological Neurological: Denies numbness, Denies weakness - Psychiatric Psychiatric: Denies anxiety, Denies depression - Endocrine Endocrine: Denies fatigue, Denies weight change - Hematologic/Lymphatic Comment: baby aspirin daily - Allergic/Immunologic Allergic/Immunologic: Reports as per HPI Objective - Vital Signs Vital signs: Vital Signs Temp 98.7 F 03/19/25 09:41 Pulse 72 03/19/25 09:41 Resp 17 03/19/25 09:41 BP 178/75 03/19/25 09:41 Pulse Ox 99 03/19/25 09:41 FiO2 Intake & Output 03/18/25 03/19/25 03/19/25 18:59 06:59 18:59 Weight 99.79 kg - Constitutional General appearance: Present: cooperative - EENT Eyes: Present: EOMI ENT: Present: hearing grossly normal - Neck Neck: Present: normal ROM - Respiratory Respiratory: bilateral: CTA - Cardiovascular Rhythm: regular Heart sounds: normal: S1, S2 - Integumentary Integumentary: Present: normal turgor - Musculoskeletal Musculoskeletal: Present: gait normal - Psychiatric Psychiatric: Present: A&O x's 3, appropriate affect, intact judgment & insight - Additional findings Additional findings: Breast Exam: BRA: 44C Inspection: Bilateral grade 3 ptosis; right breast larger than left breast Palpation: Right breast: Multi-positional exam fibrocystic changes no dominant masses or nodules of concern Right axilla: No adenopathy of concern Left breast: Well-healed scar from prior surgery, postsurgical and radiation changes otherwise no dominant masses or nodules of concern a multi-positional exam Left axilla: No adenopathy of concern incision well-healed Fungal infection medial aspect under left breast Assessment and Plan Assessment: Impression: HTN high cholesterol boarderline diabetic Left breast stage IA invasive ductal carcinoma no evidence of any recurrence, patient has completed a course of radiation therapy and is on anastrozole her Oncotype score was 14 asymmetry of the breast A bilateral mammogram 03-16-25 BIRAD 2 Fungal infection under left breast Plan: Continue anastrozole Continue follow-up with medical and radiation oncology Bilateral mammogram in March 2026 year with examination at that time Nystatin as needed for fungal infection left chest wall The patient is not interested in a symmetry procedure for her breast Follow-up 6 months for close surveillance CC: Dr. Barrios
== END ==
LOC: WWCWWP 08:53
PROVIDERS: ATTEND Surgery
DX: C50.812 Malignant neoplasm of overlapping sites of left female breast (principal); I10 Essential (primary) hypertension; E78.00 Pure hypercholesterolemia, unspecified; E11.9 Type 2 diabetes mellitus without complications; N64.89 Other specified disorders of breast; Z79.811 Long term (current) use of aromatase inhibitors; Z92.3 Personal history of irradiation